=== PATIENT | female | born 1990 | race Two or more races ===

== ENCOUNTER 2024-04-04 12:59 | Emergency (ER) | payer MEDICAID, SELFPAY ==
[2024-04-04 13:13] VITALS: BP 130/80; PULSE 84; RESP 18; TEMP 36.9; O2SAT 96; BMI 30.8
--- NOTE | 2024-04-04 13:36 | XR_ITS ---
Examination: CT brain head without contrast. 2-D sagittal coronal reconstructions Date and time of exam:April 04, 2024 1345 hours INDICATIONS: Headaches brain follicle altered mental status today CTDI: vol (mGy):45.7 DLP: (mGycm):968 Technique: Multiple CT axial sections of the brain have been obtained, 5 mm slice thickness. Contrast has not been administered. 2-D sagittal, coronal reconstructions have been obtained Low dose protocols were performed. One or more of the following dose reduction techniques were used; automated exposure control, adjustment of the mA and/or KV according to patient size, use of iterative reconstruction technique. Findings: No significant ventricular enlargement. Intra-axial or extra-axial hemorrhage density is not seen. No mass effect or midline shift Basal cisterns are not remarkable. Fourth ventricle is midline. Cranial vault intact. Impression: Negative for acute hemorrhage, mass effect or midline shift Advise clinical correlation follow-up accordingly
[2024-04-04 14:06] LABS: Basophils % (Auto) 0 % (0-2.5); Eosinophils # (Auto) 0.2 Thou/mm3 (0.0-0.5); Eosinophils % (Auto) 2 % (0-10); Hematocrit 37.2 % (36.0-46.0); Hemoglobin 12.6 g/dL (12.0-16.0); Immature Granulocytes % (Auto) 0 % (0-0); Immature Granulocytes Auto 0.02 Thou/mm3 (0.00-0.00); Lymphocytes # (Auto) 3.1 Thou/mm3 (1.0-4.8); Lymphocytes % (Auto) 33 % (10-50); Mean Corpuscular HGB Conc 33.9 g/dl (31.0-37.0); Mean Corpuscular Volume 86 fL (80-100); Monocytes # (Auto) 0.9 Thou/mm3 (0.0-0.8); Monocytes % (Auto) 10 % (0-12); Neutrophils # (Auto) 5.2 Thou/mm3 (1.8-7.7); Neutrophils % (Auto) 55 % (37-80); Nucleated Red Blood Cell % 0 /100 WBC (0); Platelet Count 302 Thou/mm3 (140-440); RDW Standard Deviation 40.1 fL (36.4-46.3); Red Blood Count 4.34 Miln/mm3 (4.00-5.20); White Blood Count 9.5 Thou/mm3 (3.6-11.0)
[2024-04-04 14:28] LABS: Alanine Aminotransferase 17 U/L (10-49); Albumin, Serum 4.5 gm/dL (3.5-5.0); Albumin/Globulin Ratio 1.4 (1.2-2.2); Alkaline Phosphatase 100 U/L (46-116); Anion Gap 6 (7-16); Aspartate Amino Transferase 18 U/L (0-34); BUN/Creatinine Ratio 11 Ratio (12-20); Bilirubin,Total 0.4 mg/dL (0.3-1.2); Blood Urea Nitrogen 9 mg/dL (9-23); Calcium 9.2 mg/dL (8.3-10.6); Calcium (Corrected) 9.2 mg/dL (8.5-10.1); Carbon Dioxide 26.7 mMol/L (20.0-31.0); Chloride 105 mMol/L (98-107); Creatinine (Component) 0.8 mg/dL (0.6-1.3); Estimated Creatinine Clearance 88.4 mL/min (>60); Globulin 3.2 gm/dL (2.3-3.5); Glucose 78 mg/dL (74-106); Osmolality,Calculated 273 (275-295); Potassium 3.5 mMol/L (3.4-5.1); Sodium 138 mMol/L (136-145); Total Protein 7.7 gm/dL (5.7-8.2); eGFR > 60 See Note
[2024-04-04 14:31] LABS: HCG,Qualitative Serum Negative
--- NOTE | 2024-04-04 15:06 | EDNOTE_ITS ---
ED Dizzyness RME/HPI General Chief Complaint: Dizziness Stated Complaint: DIZZY, BRAIN FOG Time Seen by Provider: 04/04/24 13:13 Arrival date/time: 04/04/24 12:59 33-year-old female presents emergency department today with reports of brain fog as well as dizziness and patient reports she feels like she has a bump or a crevice on the left side of her skull patient reports no recent injuries patient reports no fever nausea or vomiting there are no other associated symptoms or aggravating factors no other modifying factors, patient denies taking medication before coming to ER today Limitations: no limitations Related Data Previous Rx's ?Medication ?Instructions ?Recorded ibuprofen 600 mg tablet 600 mg PO Q6H #30 tabs 04/04/24 Allergies Allergy/AdvReac Type Severity Reaction Status Date / Time No Known Allergies Allergy Unknown Verified 02/09/22 11:25 Review of Systems Review of Systems Systems Reviewed: All systems reviewed, normal except as documented Constitutional Constitutional: Reports system reviewed and no additional complaints, except as documented, Denies fever(s) and Reports headache(s) Eyes Eyes: Reports system reviewed and no additional complaints, except as documented and Denies blurry vision ENT Ears, Nose, Mouth, and Throat: Reports system reviewed and no additional complaints, except as documented, Reports headache(s), Denies nasal congestion, Denies nasal discharge and Reports vertigo Cardiovascular Cardiovascular: Reports system reviewed and no additional complaints, except as documented, Denies chest pain and Denies dyspnea Respiratory Respiratory: Reports system reviewed and no additional complaints, except as documented, Denies chest congestion, Denies cough and Denies dyspnea Gastrointestinal Gastrointestinal: Reports system reviewed and no additional complaints, except as documented and Denies abdominal pain Integumentary/Breasts Skin/Breast: Reports system reviewed and no additional complaints, except as documented and Denies rash Neurologic Neurologic: Reports system reviewed and no additional complaints, except as documented, Reports as per HPI, Reports headache(s) and Reports vertigo Past Medical History Past Medical History NEUROLOGIC: Positive Migraine (OTC); Negative Neurological Disorders or Seizures CARDIAC: Negative Cardiac Disorders, Congestive Heart Failure, Edema, Cellulitis or Varicose Veins RESPIRATORY: Negative Chronic Obstructive Pulmonary Disease (COPD), Tuberculosis or Sleep Apnea GASTROINTESTINAL: Negative Gastrointestinal Disorders, Hepatitis, Ramirez's Esophagus or Colorectal Cancer GENITOURINARY: Negative Genitourinary Disorders or Renal Disease REPRODUCTIVE: Positive Previous Pregnancies (); Negative Breast Cancer, Endometriosis, Genital Herpes, Gonorrhea, Pelvic Inflammatory Disease, Syphilis or Uterine Prolapse MUSCULOSKELETAL: Negative Musculoskeletal Disorders or Bone Cancer ENDOCRINE: Negative Endocrine Disorders, Diabetes Mellitus Type 1 or Diabetes Mellitus Type 2 HEMATOLOGIC: Positive Anemia (DURING , NO CURRENT PROBLEMS); Negative Blood Disorders, Leukemia, Hemophilia, Thalassemia, Sickle Cell Disease or Clotting Problems OTHER HISTORY: Negative Hospitalization, Autoimmune Disease, Down Syndrome, Developmental Delay, Shingles, Falls, Blood Transfusions, Blood Transfusion Reaction, Anesthesia Reactions, Organ Transplant, Chemotherapy, Radiation Therapy, Hyperbaric Therapy, MRSA, VRSA, Vancomycin-Resistant Enterococci, Human Immunodeficiency Virus (HIV), Chicken Pox, Measles, Mumps, Rubella (Korean Measles), Pertussis, Clostridium Difficile, Breast Cancer, Cervical Cancer, Colorectal Cancer, Lung Cancer or Ovarian Cancer Family History FAMILY HISTORY: Positive Family Psychiatric Problems (SISTER (DEPRESSION)) and Family Surgery (MOTHER); Negative Family Respiratory Disorders, Family Cardiac Disorders, Family Gastrointestinal Problems, Family Cancer or Family Anesthesia Reaction Surgical History SURGICAL: Negative Pacemaker or Organ Transplant Social History SMOKING STATUS: Never smoker ED Exam General Limitations: Present no limitations General appearance: Present alert and in no apparent distress Head Head exam: Present atraumatic, normocephalic and normal inspection Eye Eye exam: Present normal appearance, PERRL and EOMI; Absent conjunctival injection ENT ENT exam: Present normal exam, normal oropharynx and mucous membranes moist Neck Neck exam: Present normal inspection, full ROM and trachea midline Chest Chest inspection: Present normal inspection and symmetric chest wall rise Respiratory Respiratory exam: Present normal lung sounds bilaterally; Absent respiratory distress Cardiovascular Cardiovascular exam: Present regular rate, normal rhythm and normal heart sounds Abdominal Exam Abdominal exam: Present soft and normal bowel sounds; Absent distention, tenderness, guarding, rebound or rigidity Extremities Exam Extremities exam: Present normal inspection and full ROM Back Exam Back exam: Present normal inspection and full ROM Neurological Exam Neurological exam: Present alert, oriented X3, CN II-XII intact, normal gait and reflexes normal; Absent motor sensory deficit Psychiatric Psychiatric exam: Present normal affect and normal mood Skin Skin exam: Present warm, dry, intact and normal color; Absent rash Course Quality Measures none Orders Category Date Time Status CT head/brain wo con Stat Exams 04/04/24 13:36 Completed CBC Stat Lab 04/04/24 13:51 Completed CMP [Comprehensive Metabolic Panel] Stat Lab 04/04/24 13:51 Completed HCG,Qualitative Serum Stat Lab 04/04/24 13:51 Completed Vital Signs Vital signs: Vital Signs Temperature 98.4 F 04/04/24 13:13 Pulse Rate 84 04/04/24 13:13 Respiratory Rate 18 04/04/24 13:13 Blood Pressure 130/80 04/04/24 13:13 Pulse Oximetry (%) 96 04/04/24 13:13 Oxygen Delivery Method Room Air 04/04/24 13:13 O2 saturation 96% room air within normal limit Dizziness MDM Narrative MDM Narrative:: 33-year-old female presents emergency department today with reports of brain fog as well as dizziness and patient reports she feels like she has a bump or a crevice on the left side of her skull patient reports no recent injuries patient reports no fever nausea or vomiting there are no other associated symptoms or aggravating factors no other modifying factors, patient denies taking medication before coming to ER today On exam I do not feel any abnormalities to the skull l on palpation On exam patient well-appearing patient does not appear ill or toxic patient walks with steady gait Imaging obtained lab work obtained no acute emergent findings noted Patient discharged home in no distress to follow-up with primary care doctor in the next 24 to 48 hours and for any worsening symptoms to return to the ER immediately Patient data External records reviewed:: [facility] previous records Clinical information provided by:: patient Social determinants that could affect healthcare access:: none Patient has the following chronic illnesses:: none How is presenting disease/condition affected by chronic disease/condition?: no chronic disease Evaluation data The following diagnostics were reviewed and interpreted by me:: lab results and radiology exam(s) Lab and/or radiology exams considered but not ordered:: Labs radiology obtained Interpretation Summary: Reviewed by me Medications / Prescriptions Medications or Prescriptions considered but not ordered:: Given Medication administrations:: Given Consultations Consultation(s) initiated? (list below): No Diagnosis Dizziness Differential Diagnosis: other (Dizziness, headache) Most likely diagnosis given after review of the tests above:: Headache Admission Indicated Admission indicated?: not indicated Admission Request Was there a request for admission?: No Disposition Plan Disposition Plan: Discharge Discharge Attestation Discharge Attestation: The patient and all family members were given an opportunity to ask questions and understood the discharge instructions. Discharge instructions specifically effects, indications for sooner follow up or return to the emergency department, and the expected course of current diagnosis. Patient condition: Stable Discharge Plan Plan Patient Disposition: HOME (Self Care) Disposition Comment: Stable Prescriptions/Referrals Prescriptions/Med Rec: New ibuprofen 600 mg tablet 600 mg PO Q6H Qty: 30 0RF Problem List Clinical Impression: Headache Patient/Caregiver Discharge Instructions Education Materials: Self-Care for Headaches Additional Instructions: Please follow up with your primary care doctor in the next 24-48hrs for any worsening symptoms return here immediately Print Language: Latvian Stand Alone Forms: N[employer] Award Info., Work/School Release, Patient Portal Info Letter PA/ASSOCIATE ARTISTIC DIRECTOR Supervising Physician PA/ASSOCIATE ARTISTIC DIRECTOR Supervising Physician: Dr. Aranda
== END 2024-04-04 15:34 | disposition home or self-care (01) ==
LOC: SERX 15:33
PROVIDERS: Nurse Practitioner Primary Care; Emergency Provider Emergency Medicine
DX: R51.9 Headache, unspecified (principal); R42 Dizziness and giddiness
CPT/HCPCS: 36415; 70450; 80053; 84703; 85025; 99284

== ENCOUNTER → 2024-09-07 | Outpatient (CLI) | payer MEDICAID, SELFPAY ==
--- NOTE | 2024-09-07 16:00 | XR_ITS ---
Examination: Thyroid sonography complete TECHNIQUE: Penny scale sonographic images thyroid lobes Date and time: September 07, 2024 1559 hours Difficulty swallowing 2 years, diagnosis hypothyroidism 2 years ago. FINDINGS: Right thyroid 4.1 cm Left thyroid 4.0 cm No thyroid nodules IMPRESSION: Negative examination
== END | disposition home or self-care (01) ==
LOC: CDIM 15:52
PROVIDERS: Referring Provider Nurse Practitioner Primary Care; Visit Provider Nurse Practitioner Primary Care
DX: R13.10 Dysphagia, unspecified (principal); Z86.39 Personal history of other endocrine, nutritional and metabolic disease
CPT/HCPCS: 76536

== ENCOUNTER 2024-09-10 13:15 | Emergency (ER) | payer MEDICAID, SELFPAY ==
[2024-09-10 13:16] VITALS: BMI 31.4
[2024-09-10 13:23] VITALS: BP 118/75; PULSE 77; RESP 18; TEMP 36.9; O2SAT 98
--- NOTE | 2024-09-10 13:34 | XR_ITS ---
Examination: Complete OB ultrasound, less than 14 weeks, transabdominal Date and time of exam: September 10, 2024 1336 hours INDICATIONS: Patient fell 30 minutes ago with injury to the pelvis followed by pelvic pain Technique: Obstetrical ultrasound images less than 14 weeks performed via transabdominal imaging Findings: Uterus 7.0 cm with intrauterine gestational sac 0.6 cm corresponding to 5 weeks 2 days gestational age No pole, no cardiac activity Right ovary 2.0 cm arterial flow Left ovary 2.7 cm arterial flow Mild fluid in the cul-de-sac IMPRESSION: Empty intrauterine gestational sac corresponding to 5 weeks 2 days gestational age Recommend short-term follow-up transvaginal pelvic sonography to confirm viability
--- NOTE | 2024-09-10 13:37 | PD.EDFALL ---
ED Fall Injury RME/HPI General Chief Complaint: Fall Stated Complaint: PT FELL FROM 3 STEPS OF STAIRS; PT 1MONTH OB Time Seen by Provider: 09/10/24 13:19 Source: patient Arrival date/time: 09/10/24 13:15 34-year-old female with no known medical history presents to the emergency room with a chief complaint of a ground-level fall while climbing stairs to go into her house. Patient states she is currently 1 month and since the fall she has had some pelvic cramping. Mode of arrival: ambulatory Limitations: no limitations Related Data Previous Rx's ?Medication ?Instructions ?Recorded ibuprofen 600 mg tablet 600 mg PO Q6H #30 tabs 04/04/24 Allergies Allergy/AdvReac Type Severity Reaction Status Date / Time No Known Allergies Allergy Unknown Verified 09/10/24 13:19 Review of Systems Review of Systems Systems Reviewed: All systems reviewed, normal except as documented Constitutional Constitutional: Reports system reviewed and no additional complaints, except as documented, Denies fatigue, Denies fever(s), Denies headache(s) and Denies weakness Eyes Eyes: Reports system reviewed and no additional complaints, except as documented, Denies blurry vision and Denies change in vision ENT Ears, Nose, Mouth, and Throat: Reports system reviewed and no additional complaints, except as documented, Denies otalgia, Denies headache(s), Denies nasal congestion, Denies throat swelling and Denies vertigo Cardiovascular Cardiovascular: Reports system reviewed and no additional complaints, except as documented, Denies chest pain, Denies dyspnea and Denies dyspnea on exertion Respiratory Respiratory: Reports system reviewed and no additional complaints, except as documented, Denies chest congestion, Denies cough, Denies dyspnea, Denies dyspnea on exertion and Denies wheezing Gastrointestinal Gastrointestinal: Reports system reviewed and no additional complaints, except as documented, Denies abdominal pain, Denies cramping, Denies nausea and Denies vomiting Genitourinary Genitourinary: Reports system reviewed and no additional complaints, except as documented, Denies abnormal vaginal bleeding, Denies dysuria and Reports pelvic pain Musculoskeletal Musculoskeletal: Reports system reviewed and no additional complaints, except as documented and Denies back pain Integumentary/Breasts Skin/Breast: Reports system reviewed and no additional complaints, except as documented and Denies wounds Neurologic Neurologic: Reports system reviewed and no additional complaints, except as documented, Denies confusion, Denies headache(s), Denies lack of coordination, Denies vertigo and Denies weakness Psychiatric Psychiatric: Reports system reviewed and no additional complaints, except as documented, Denies anxiety, Denies confusion, Denies depression, Denies paranoia, Denies suicidal ideation and Denies tactile hallucinations Endocrine Endocrine: Reports system reviewed and no additional complaints, except as documented and Denies fatigue Hematologic/Lymphatic Hematologic/Lymphatic: Reports system reviewed and no additional complaints, except as documented and Denies lymphadenopathy Allergic/Immunologic Allergic/Immunologic: Reports system reviewed and no additional complaints, except as documented, Denies throat swelling, Denies urticaria and Denies wheezing ED Exam General Limitations: Present no limitations General appearance: Present alert and in no apparent distress Head Head exam: Present atraumatic Eye Eye exam: Present normal appearance, PERRL and EOMI ENT ENT exam: Present normal exam, normal oropharynx and mucous membranes moist Neck Neck exam: Present normal inspection, full ROM and trachea midline Chest Chest inspection: Present normal inspection and symmetric chest wall rise Respiratory Respiratory exam: Present normal lung sounds bilaterally Cardiovascular Cardiovascular exam: Present regular rate, normal rhythm and normal heart sounds Abdominal Exam Abdominal exam: Present soft and normal bowel sounds Abdominal tenderness: Present RLQ, LLQ, suprapubic and mild Extremities Exam Extremities exam: Present normal inspection and full ROM Back Exam Back exam: Present normal inspection and full ROM Neurological Exam Neurological exam: Present alert, oriented X3 and CN II-XII intact Psychiatric Psychiatric exam: Present normal affect and normal mood Skin Skin exam: Present warm, dry, intact and normal color Course Quality Measures none Orders Category Date Time Status US OB <= 14 weeks fetus Stat Exams 09/10/24 13:34 Completed ABO/RH Type Stat Lab 09/10/24 13:41 Completed Beta HCG,Quantitative Stat Lab 09/10/24 13:41 Completed CBC Stat Lab 09/10/24 13:41 Completed CMP [Comprehensive Metabolic Panel] Stat Lab 09/10/24 13:41 Completed UA [Urinalysis] Stat Lab 09/10/24 14:29 Completed Vital Signs Vital signs: Vital Signs Temperature 98.4 F 09/10/24 13:23 Pulse Rate 77 09/10/24 13:23 Respiratory Rate 18 09/10/24 13:23 Blood Pressure 118/75 09/10/24 13:23 Pulse Oximetry (%) 98 09/10/24 13:23 Oxygen Delivery Method Room Air 09/10/24 13:23 O2 saturation 98% within normal limits Fall MDM Narrative MDM Narrative:: 34-year-old female with no known medical history presents to the emergency room with a chief complaint of a ground-level fall while climbing stairs to go into her house. Patient states she is currently 1 month and since the fall she has had some pelvic cramping. Patient is hemodynamically stable and in no apparent distress Physical examination shows some bilateral pelvic cramping. Patient denies any vaginal bleeding or spotting. H&H is within normal limits. Patient's hCG levels are at 2985. Ultrasound OB showed an empty intrauterine gestational sac at 5 weeks and 2 days there is no pole no cardiac activity. The patient was educated to return for transvaginal pelvic sonography in the next 3 days to confirm viability. Patient was discharged and educated to follow-up with primary care provider in the next 24 to 48 hours and return to the emergency room for any evidence of worsening signs or symptoms Patient data External records reviewed:: [facility] previous records Clinical information provided by:: patient Social determinants that could affect healthcare access:: none Patient has the following chronic illnesses:: No chronic illness How is presenting disease/condition affected by chronic disease/condition?: no chronic disease Evaluation data The following diagnostics were reviewed and interpreted by me:: lab results and radiology exam(s) Lab and/or radiology exams considered but not ordered:: Labs and radiology exams considered in order Interpretation Summary: OB ultrasound-Findings: Uterus 7.0 cm with intrauterine gestational sac 0.6 cm corresponding to 5 weeks 2 days gestational age No pole, no cardiac activity Right ovary 2.0 cm arterial flow Left ovary 2.7 cm arterial flow Mild fluid in the cul-de-sac IMPRESSION: Empty intrauterine gestational sac corresponding to 5 weeks 2 days gestational age Recommend short-term follow-up transvaginal pelvic sonography to confirm viability Medications / Prescriptions Medications or Prescriptions considered but not ordered:: No medication given Medication administrations:: No medication given Consultations Consultation(s) initiated? (list below): No Diagnosis Fall Differential Diagnosis: other (Pelvic pain/threatened /spontaneous ) Most likely diagnosis given after review of the tests above:: Pelvic pain Admission Indicated Admission indicated?: not indicated Admission Request Was there a request for admission?: No Disposition Plan Disposition Plan: Discharge Discharge Attestation Discharge Attestation: The patient and all family members were given an opportunity to ask questions and understood the discharge instructions. Discharge instructions specifically effects, indications for sooner follow up or return to the emergency department, and the expected course of current diagnosis. Patient condition: Stable Discharge Plan Plan Patient Disposition: HOME (Self Care) Discharge Disposition comment: Stable Prescriptions/Referrals Prescriptions/Med Rec: No Action ibuprofen 600 mg tablet 600 mg PO Q6H Qty: 30 0RF Referrals: No Primary/Family,Physician [Primary Care Provider] - In 1 week Problem List Clinical Impression: Pelvic pain affecting Patient/Caregiver Discharge Instructions Education Materials: ED Abdominal Pain, Early Additional Instructions: Please follow-up with your AIRLINE MANAGERIAL SUPERVISOR or your primary care provider in the next 24 to 48 hours. At this time an ultrasound was completed and you are currently 5 weeks and 5 days . There is an empty intrauterine sac and there is no cardiac activity. You will need to return in 3 days for repeat ultrasound and blood work to confirm viability. Your hCG levels today are 2985. We will compare these levels in your next visit. For any evidence of worsening signs or symptoms return to the emergency room immediately Print Language: Korean Stand Alone Forms: Nely Award Info., Work/School Release, Patient Portal Info Letter TOMAS/ABDIRAHMAN Supervising Physician TOMAS/ABDIRAHMAN Supervising Physician: Dr Keith
[2024-09-10 14:23] LABS: Basophils % (Auto) 0 % (0-2.5); Eosinophils # (Auto) 0.2 Thou/mm3 (0.0-0.5); Eosinophils % (Auto) 3 % (0-10); Hematocrit 32.9 % (36.0-46.0); Hemoglobin 11.4 g/dL (12.0-16.0); Immature Granulocytes % (Auto) 0 % (0-0); Immature Granulocytes Auto 0.01 Thou/mm3 (0.00-0.00); Lymphocytes # (Auto) 2.7 Thou/mm3 (1.0-4.8); Lymphocytes % (Auto) 33 % (10-50); Mean Corpuscular HGB Conc 34.7 g/dl (31.0-37.0); Mean Corpuscular Hemoglobin 29.2 pg (25.0-35.0); Mean Corpuscular Volume 84 fL (80-100); Monocytes # (Auto) 0.7 Thou/mm3 (0.0-0.8); Monocytes % (Auto) 9 % (0-12); Neutrophils # (Auto) 4.3 Thou/mm3 (1.8-7.7); Neutrophils % (Auto) 54 % (37-80); Nucleated Red Blood Cell % 0 /100 WBC (0); Platelet Count 283 Thou/mm3 (140-440); RDW Standard Deviation 40.8 fL (36.4-46.3)
[2024-09-10 14:40] LABS: Collection Type, Urine Clean Catch
[2024-09-10 14:53] LABS: Bilirubin,Urine Negative (Negative); Blood,Urine Negative (Negative); Clarity,Urine Turbid (Clear/Hazy); Color,Urine Yellow (Lt Yel-Yel); Glucose, Urine Negative (Negative); Ketones,Urine Negative (Negative); Leukocyte Esterase,Urine Negative (Negative); Nitrite,Urine Negative (Negative); Protein,Urine Trace (Neg - Trace); RBC,Urine 5 /hpf (0-3); Specific Gravity,Urine 1.028 (1.001-1.035); Squamous Epithelial Cell,Urine 26 /hpf (0-5); Urobilinogen,Urine Negative mg/dL (0.0-1.0); WBC,Urine 1 /hpf (0-5)
[2024-09-10 14:58] LABS: Alanine Aminotransferase 10 U/L (10-49); Albumin, Serum 4.1 gm/dL (3.5-5.0); Albumin/Globulin Ratio 1.3 (1.2-2.2); Alkaline Phosphatase 93 U/L (46-116); Anion Gap 10 (7-16); Aspartate Amino Transferase 23 U/L (0-34); BUN/Creatinine Ratio 7 Ratio (12-20); Beta HCG,Quantitative 2985 mIU/mL (<5.0); Bilirubin,Total 0.3 mg/dL (0.3-1.2); Blood Urea Nitrogen 5 mg/dL (9-23); Carbon Dioxide 22.9 mMol/L (20.0-31.0); Chloride 102 mMol/L (98-107); Creatinine (Component) 0.7 mg/dL (0.6-1.3); Globulin 3.1 gm/dL (2.3-3.5); Glucose 83 mg/dL (74-106); Osmolality,Calculated 266 (275-295); Potassium 3.4 mMol/L (3.4-5.1); Sodium 135 mMol/L (136-145); Total Protein 7.2 gm/dL (5.7-8.2); eGFR > 60 See Note
== END 2024-09-10 16:06 | disposition home or self-care (01) ==
PROVIDERS: Nurse Practitioner Family; Emergency Provider Emergency Medicine
DX: O9A.211 Injury, poisoning and certain other consequences of external causes complicating pregnancy, first trimester (principal); S39.93XA Unspecified injury of pelvis, initial encounter; W00.1XXA Fall from stairs and steps due to ice and snow, initial encounter; Y93.39 Activity, other involving climbing, rappelling and jumping off; Y92.008 Other place in unspecified non-institutional (private) residence as the place of occurrence of the external cause; Z3A.01 Less than 8 weeks gestation of pregnancy
CPT/HCPCS: 36415; 76801; 80053; 81001; 84702; 85025; 86900; 86901; 99284

== ENCOUNTER 2024-09-13 14:32 | Emergency (ER) | payer MEDICAID, SELFPAY ==
[2024-09-13 14:33] VITALS: BMI 31.4
[2024-09-13 14:57] VITALS: BP 117/72; PULSE 79; RESP 18; TEMP 36.8; O2SAT 99
--- NOTE | 2024-09-13 15:16 | PD.EDRECHK ---
ED Recheck Abnl Lab Rx-RME/HPI General Chief Complaint: Recheck/Abnormal Lab/Rx Stated Complaint: RECHECK HCG LEVELS / REPEAT US Time Seen by Provider: 09/13/24 14:48 Arrival date/time: 09/13/24 14:32 RME / HPI RME / HPI narrative: 34-year-old female patient was told to come back today for repeat hCG. Patient sustained a fall 3 days ago, and ultrasound of the was done and showed intrauterine gestational sac and hCG was done. Patient was advised to return for repeat hCG. Patient is denying any complaints no abdominal pain no pelvic pain no vaginal bleeding or spotting. She is 5 weeks . Related Data Previous Rx's ?Medication ?Instructions ?Recorded ibuprofen 600 mg tablet 600 mg PO Q6H #30 tabs 04/04/24 Allergies Allergy/AdvReac Type Severity Reaction Status Date / Time No Known Allergies Allergy Unknown Verified 09/13/24 14:35 Review of Systems Review of Systems Narrative Review of Systems: Review of system reviewed and within normal limits except mentioned in HPI ED Exam Narrative Physical exam: VITAL SIGNS: Reviewed. GENERAL APPEARANCE: Alert and interactive, follows commands, no acute distress, HEAD AND FACE: Non-traumatic. ENT: PERRL, pink conjunctivitis, eyelid no trauma, Mucous membrane moist. NECK: Supple, nontender, no nuchal rigidity. CHEST: No tenderness, no crepitus, no paradoxical movement, no retractions. LUNGS: Clear, well ventilated, symmetric, no rales, no wheezing, no ronchi, no stridor, good breath sounds bilaterally. HEART: Regular rate, regular rhythm, no murmur, no gallops. ABDOMEN: Soft, positive bowel sounds, nondistended, no guarding, nontender, no rebound, no masses, RECTAL: Deferred. GENITAL: Deferred. NEUROLOGICAL: Gross motor function intact sensory function intact, Appropriate for age. MUSCULOSKELETAL: low back nontender, full range of motion. EXTREMITIES: Nontender, full range of motion. SKIN: Color pink, dry, no rash, no lacerations, no abrasions, no contusions. LYMPHATICS: Deferred. Course Quality Measures none Orders Category Date Time Status Beta HCG,Quantitative Stat Lab 09/13/24 15:37 Completed Vital Signs Vital signs: Vital Signs Temperature 98.2 F 09/13/24 14:57 Pulse Rate 79 09/13/24 14:57 Respiratory Rate 18 09/13/24 14:57 Blood Pressure 117/72 09/13/24 14:57 Pulse Oximetry (%) 99 09/13/24 14:57 Oxygen Delivery Method Room Air 09/13/24 14:57 Recheck / Abnormal Lab / Rx MDM Narrative MDM Narrative:: 34-year-old female patient was told to come back today for repeat hCG. Patient sustained a fall 3 days ago, and ultrasound of the was done and showed intrauterine gestational sac and hCG was done. Patient was advised to return for repeat hCG. Patient is denying any complaints no abdominal pain no pelvic pain no vaginal bleeding or spotting. She is 5 weeks . Patient hCG above 9000, which is normal increase in 3 days. From more than 1999. Patient data External records reviewed:: None Clinical information provided by:: patient Social determinants that could affect healthcare access:: none Patient has the following chronic illnesses:: none How is presenting disease/condition affected by chronic disease/condition?: no chronic disease Evaluation data The following diagnostics were reviewed and interpreted by me:: lab results Lab and/or radiology exams considered but not ordered:: none Interpretation Summary: 9337 Medications / Prescriptions Medications or Prescriptions considered but not ordered:: none Medication administrations:: none Consultations Consultation(s) initiated? (list below): No Diagnosis Recheck Differential Diagnosis: other (Encounter with recheck of hCG) Most likely diagnosis given after review of the tests above:: Normal Admission Indicated Admission indicated?: not indicated Admission Request Was there a request for admission?: No Disposition Plan Disposition Plan: Discharge Discharge Attestation Discharge Attestation: The patient was given an opportunity to ask questions and understood the discharge instructions. Discharge instructions specifically effects, indications for sooner follow up or return to the emergency department, and the expected course of current diagnosis. Patient condition: Stable Discharge Plan Plan Patient Disposition: HOME (Self Care) Discharge Disposition comment: Stable Prescriptions/Referrals Prescriptions/Med Rec: No Action ibuprofen 600 mg tablet 600 mg PO Q6H Qty: 30 0RF Referrals: No Primary/Family,Physician [Primary Care Provider] - In 1 week Problem List Clinical Impression: Normal Patient/Caregiver Discharge Instructions Discharge Activity: activity as tolerated Education Materials: First Trimester Additional Instructions: Thank you for the opportunity for serving you today. You are stable for discharged . You are advised to: Follow-up with your SAFETY EQUIPMENT TESTING SPECIALIST in 1 to 2 days Return to ED for worsening of symptoms Print Language: Kinyarwanda Stand Alone Forms: Nely Award Info., Patient Portal Info Letter TOMAS/PROFESSOR OF SPECIAL EDUCATION Supervising Physician TOMAS/ABDIRAHMAN Supervising Physician: MD Rashid
[2024-09-13 16:37] LABS: Beta HCG,Quantitative 9337 mIU/mL (<5.0)
== END 2024-09-13 17:32 | disposition home or self-care (01) ==
PROVIDERS: Nurse Practitioner Family; Emergency Provider Family Medicine
DX: Z34.91 Encounter for supervision of normal pregnancy, unspecified, first trimester (principal)
CPT/HCPCS: 36415; 84702; 99283

== ENCOUNTER 2024-09-21 15:00 | Emergency (ER) | payer MEDICAID, SELFPAY ==
[2024-09-21 15:01] VITALS: BMI 32.5
[2024-09-21 15:06] VITALS: BP 113/71; PULSE 70; RESP 16; TEMP 37.2; O2SAT 97
--- NOTE | 2024-09-21 15:10 | XR_ITS ---
Examination: Complete OB ultrasound, less than 14 weeks, transabdominal Date and time of exam: September 21, 2024 1517 hours INDICATIONS: Onset vaginal discharge today Technique: Obstetrical ultrasound images less than 14 weeks performed via transabdominal imaging Findings: A normal shaped single intrauterine gestation is present in the uterus. pole 0.9 cm corresponds to 17 weeks 0 days gestational age Adjacent subchorionic hemorrhage 22 x 7 mm Ultrasonographic survey of visible structures unremarkable. Amniotic fluid volume appears appropriate for this estimated gestational age. Right ovary 2.8 cm arterial flow Left ovary 2.2 cm arterial flow IMPRESSION: Viable intrauterine gestation 7 weeks 0 days Recommend short-term follow-up pelvic sonography given the subchorionic hemorrhage on the current study
[2024-09-21 16:05] LABS: Basophils % (Auto) 0 % (0-2.5); Eosinophils # (Auto) 0.2 Thou/mm3 (0.0-0.5); Eosinophils % (Auto) 2 % (0-10); Hematocrit 32.5 % (36.0-46.0); Hemoglobin 11.4 g/dL (12.0-16.0); Immature Granulocytes % (Auto) 0 % (0-0); Immature Granulocytes Auto 0.01 Thou/mm3 (0.00-0.00); Lymphocytes # (Auto) 2.4 Thou/mm3 (1.0-4.8); Lymphocytes % (Auto) 30 % (10-50); Mean Corpuscular HGB Conc 35.1 g/dl (31.0-37.0); Mean Corpuscular Hemoglobin 30.1 pg (25.0-35.0); Mean Corpuscular Volume 86 fL (80-100); Monocytes # (Auto) 0.7 Thou/mm3 (0.0-0.8); Monocytes % (Auto) 8 % (0-12); Neutrophils # (Auto) 4.8 Thou/mm3 (1.8-7.7); Neutrophils % (Auto) 60 % (37-80); Nucleated Red Blood Cell % 0 /100 WBC (0); Platelet Count 251 Thou/mm3 (140-440); RDW Standard Deviation 42.2 fL (36.4-46.3); Red Blood Count 3.79 Miln/mm3 (4.00-5.20); White Blood Count 8.1 Thou/mm3 (3.6-11.0)
--- NOTE | 2024-09-21 17:26 | EDNOTE_ITS ---
<Statement entered by Kirsty Torre MD - 10/02/24 00:59> As co-signing physician, I was present and available for consult prn. I concur with the plan and care as documented by the midlevel provider. ED OB Contraction Preg RMI/HPI General Chief complaint: Vaginal Bleeding Stated complaint: 7WKS PREG, C/O VAG DISCHARGE/SPOTTING Time Seen by Provider: 09/21/24 15:05 Arrival date/time: 09/21/24 15:00 34-year-old female with no significant medical problems presents to the emergency department today stating she is having vaginal spotting pink vaginal discharge. Patient reports no fever nausea vomiting no headache dizziness weakness Limitations: no limitations Related Data Previous Rx's ?Medication ?Instructions ?Recorded ibuprofen 600 mg tablet 600 mg PO Q6H #30 tabs 04/04 Allergies Allergy/AdvReac Type Severity Reaction Status Date / Time No Known Allergies Allergy Unknown Verified 09/21/24 15:03 Review of Systems Review of Systems Systems Reviewed: All systems reviewed, normal except as documented Constitutional Constitutional: Reports system reviewed and no additional complaints, except as documented, Denies fever(s) and Denies headache(s) Eyes Eyes: Reports system reviewed and no additional complaints, except as documented and Denies blurry vision ENT Ears, Nose, Mouth, and Throat: Reports system reviewed and no additional complaints, except as documented, Denies headache(s), Denies nasal congestion and Denies nasal discharge Cardiovascular Cardiovascular: Reports system reviewed and no additional complaints, except as documented, Denies chest pain and Denies dyspnea Respiratory Respiratory: Reports system reviewed and no additional complaints, except as documented, Denies chest congestion, Denies cough and Denies dyspnea Gastrointestinal Gastrointestinal: Reports system reviewed and no additional complaints, except as documented and Denies abdominal pain Genitourinary Genitourinary: Reports system reviewed and no additional complaints, except as documented and Reports abnormal vaginal bleeding Integumentary/Breasts Skin/Breast: Reports system reviewed and no additional complaints, except as documented and Denies rash Neurologic Neurologic: Reports system reviewed and no additional complaints, except as documented, Reports as per HPI and Denies headache(s) Past Medical History Past Medical History NEUROLOGIC: Positive Migraine (OTC); Negative Neurological Disorders or Seizures CARDIAC: Negative Cardiac Disorders, Congestive Heart Failure, Edema, Cellulitis or Varicose Veins RESPIRATORY: Negative Chronic Obstructive Pulmonary Disease (COPD), Tuberculosis or Sleep Apnea GASTROINTESTINAL: Negative Gastrointestinal Disorders, Hepatitis, Ramirez's Esophagus or Colorectal Cancer GENITOURINARY: Negative Genitourinary Disorders or Renal Disease REPRODUCTIVE: Positive Previous Pregnancies (); Negative Breast Cancer, Endometriosis, Genital Herpes, Gonorrhea, Pelvic Inflammatory Disease, Syphilis or Uterine Prolapse MUSCULOSKELETAL: Negative Musculoskeletal Disorders or Bone Cancer ENDOCRINE: Negative Endocrine Disorders, Diabetes Mellitus Type 1 or Diabetes Mellitus Type 2 HEMATOLOGIC: Positive Anemia (DURING , NO CURRENT PROBLEMS); Negative Blood Disorders, Leukemia, Hemophilia, Thalassemia, Sickle Cell Disease or Clotting Problems OTHER HISTORY: Negative Hospitalization, Autoimmune Disease, Down Syndrome, Developmental Delay, Shingles, Falls, Blood Transfusions, Blood Transfusion Reaction, Anesthesia Reactions, Organ Transplant, Chemotherapy, Radiation Therapy, Hyperbaric Therapy, MRSA, VRSA, Vancomycin-Resistant Enterococci, Human Immunodeficiency Virus (HIV), Chicken Pox, Measles, Mumps, Rubella (Slovenian Measles), Pertussis, Clostridium Difficile, Breast Cancer, Cervical Cancer, Colorectal Cancer, Lung Cancer or Ovarian Cancer Family History FAMILY HISTORY: Positive Family Psychiatric Problems (SISTER (DEPRESSION)) and Family Surgery (MOTHER); Negative Family Respiratory Disorders, Family Cardiac Disorders, Family Gastrointestinal Problems, Family Cancer or Family Anesthesia Reaction Surgical History SURGICAL: Negative Pacemaker or Organ Transplant Social History SMOKING STATUS: Never smoker ED Exam General Limitations: Present no limitations General appearance: Present alert and in no apparent distress Head Head exam: Present atraumatic Eye Eye exam: Present normal appearance, PERRL and EOMI ENT ENT exam: Present normal exam, normal oropharynx and mucous membranes moist Neck Neck exam: Present normal inspection, full ROM and trachea midline Chest Chest inspection: Present normal inspection and symmetric chest wall rise Respiratory Respiratory exam: Present normal lung sounds bilaterally Cardiovascular Cardiovascular exam: Present regular rate, normal rhythm and normal heart sounds Abdominal Exam Abdominal exam: Present soft and normal bowel sounds; Absent distention, tenderness, guarding, rebound or rigidity Extremities Exam Extremities exam: Present normal inspection and full ROM Back Exam Back exam: Present normal inspection and full ROM Neurological Exam Neurological exam: Present alert, oriented X3 and CN II-XII intact Psychiatric Psychiatric exam: Present normal affect and normal mood Skin Skin exam: Present warm, dry, intact and normal color Course Quality Measures none Orders Category Date Time Status US OB <= 14 weeks fetus Stat Exams 09/21/24 15:10 Completed Beta HCG,Quantitative Stat Lab 09/21/24 15:46 Completed CBC Stat Lab 09/21/24 15:46 Completed Vital Signs Vital signs: Vital Signs Temperature 99.0 F 09/21/24 15:06 Pulse Rate 70 09/21/24 15:06 Respiratory Rate 16 09/21/24 15:06 Blood Pressure 113/71 09/21/24 15:06 Pulse Oximetry (%) 97 09/21/24 15:06 Oxygen Delivery Method Room Air 09/21/24 15:06 O2 saturation 97% on room air within normal limits Vaginal Bleeding MDM Narrative MDM Narrative: 34-year-old female with no significant medical problems presents to the emergency department today stating she is having vaginal spotting pink vaginal discharge. Patient reports no fever nausea vomiting no headache dizziness weakness On exam patient well-appearing patient does not appear toxic in no acute distress Lab work and imaging obtained no acute emergent findings noted Patient appears to have viable at this time Patient discharged home in no distress to follow-up with primary care doctor in the next 24 to 48 hours and for any worsening symptoms to return to the ER immediately Patient data External records reviewed:: [facility] previous records Clinical information provided by:: patient Social determinants that could affect healthcare access:: none Patient has the following chronic illnesses:: None How is presenting disease/condition affected by chronic disease/condition?: no chronic disease Evaluation data The following diagnostics were reviewed and interpreted by me:: lab results and radiology exam(s) Lab and/or radiology exams considered but not ordered:: Labs radiology obtained Interpretation Summary: Reviewed by me Medications / Prescriptions Medications or Prescriptions considered but not ordered:: Given Medication administrations:: Given Consultations Consultation(s) initiated? (list below): No Diagnosis Vaginal Bleeding Differential Diagnosis: missed and threatened Most likely diagnosis given after review of the tests above:: Threatened Admission Indicated Admission indicated?: not indicated Admission Request Was there a request for admission?: No Disposition Plan Disposition Plan: Discharge Discharge Attestation Discharge Attestation: The patient and all family members were given an opportunity to ask questions and understood the discharge instructions. Discharge instructions specifically effects, indications for sooner follow up or return to the emergency department, and the expected course of current diagnosis. Patient condition: Stable Discharge Plan Plan Patient Disposition: HOME (Self Care) Discharge Disposition comment: Stable Prescriptions/Referrals Prescriptions/Med Rec: No Action ibuprofen 600 mg tablet 600 mg PO Q6H Qty: 30 0RF Referrals: Claudia Stahl CNM [Primary Care Provider] - 09/24/24 Problem List Clinical Impression: Subchorionic bleed Patient/Caregiver Discharge Instructions Education Materials: Bleeding During Early Additional Instructions: Please follow-up with MAJOR ACCOUNT MANAGER as discussed for worsening symptoms return immediately Print Language: Yi Stand Alone Forms: Nely Award Info., Patient Portal Info Letter PA/SHELL MOLD BONDING MACHINE OPERATOR Supervising Physician PA/SHELL MOLD BONDING MACHINE OPERATOR Supervising Physician: Dr. TORRE
[2024-09-21 18:59] LABS: Beta HCG,Quantitative 48607 mIU/mL (<5.0)
== END 2024-09-21 18:26 | disposition home or self-care (01) ==
PROVIDERS: Nurse Practitioner Primary Care; Emergency Provider Emergency Medicine; PCP Advanced Practice Midwife
DX: O20.8 Other hemorrhage in early pregnancy (principal); Z3A.01 Less than 8 weeks gestation of pregnancy
CPT/HCPCS: 36415; 76801; 84702; 85025; 99284

== ENCOUNTER 2024-09-24 14:30 | Outpatient (AMB) | payer MEDICAID, SELFPAY ==
--- NOTE | 2024-09-24 14:36 | AMB.OBINITIA ---
Vital Signs 09/24/24 14:48 Height 1.52 m Height Method Stated Weight 73.992 kg Weight Measurement Method Standing Scale BMI 31.8 BP 110/66 Blood Pressure Source Automatic Cuff Blood Pressure Location Right Upper Arm Position Sitting Respiration 14 Pulse 63 Pulse Source Monitor Temp 98.0 F Temp Source Oral Pulse Oximetry (%) 98 Oxygen Delivery Method Room Air Allergies/Home Meds Allergies & Medications Allergies No Known Allergies Allergy (Unknown, Verified 09/24/24 14:50) Medication Reconciliation aspirin 81 mg tablet,delayed release (Adult Aspirin Regimen) 81 mg PO QDAY #30 tabs 09/24/24 [Rx] doxylamine 10 mg-pyridoxine (vit B6) 10 mg tablet,delayed release (Diclegis) 1 tab PO BID 30 days #60 tabs 09/24/24 [Rx] Intake Visit Data Collection New Patient or Established: Established Patient (seen at [facility] within 3 years) Reason for Visit:: INITIAL VISIT Seen by Clinical Staff ONLY (RN/MA): No Manager Of Case Required: No Do You Feel Safe at Home: Yes Authorities Contacted: N/A PCP or OBGYN visit in last 3 months: Yes Hx Now: Yes Are you currently on any form of Control: No Last menstrual period: 08/05/24 Pain Present Currently: No Pain Scale Used: Frias-Arellano/Numerical Pain scale:: 0 Smoking Status Smoking Status: Never smoker Questionnaires Covid-19 Vaccine Questionnaire Has patient been vacinated for Covid-19 Have you been vacinated for Covid-19: Yes PHQ-9 PHQ-2 Over the last 2 weeks, how often have you been bothered by any of the following problems? 1. Little interest or pleasure in doing things: not at all 2. Feeling down, depressed, or hopeless: not at all Total score: 0 PHQ-9 3. Trouble falling or staying asleep, or sleeping too much: Not at all 4. Feeling tired or having little energy: Not at all 5. Poor appetite or overeating: Not at all 6. Feeling bad about yourself - or that you are a failure or have let yourself or your family down: Not at all 7. Trouble concentrating on things, such as reading the newspaper or watching television: Not at all 8. Moving or speaking so slowly that other people could have noticed? - Or the opposite - being so fidgety or restless that you have been moving around a lot more than usual: not at all 9. Thoughts that you would be better off or of hurting yourself in some way: Not at all Total score: 0 Source: Developed by Drs. Ky Zavala, Tania Moctezuma, Maldonado Hernandez and colleagues, with an educational mark from [employer]. 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 Feel Safe at Home: Yes History of Present Illness HPI Narrative Xiomy Yang is a 34-year-old 5 para 4 for her first OB appointment. Patient states her last period was August 03, 2024. This gives a due date May 12, 2025. She is have been having some bleeding off and on with the and she was seen in the ED. Her last visit was September 10. She had an ultrasound that showed a viable fetus at 5 weeks 2 days. And this confirmed dates as well May 12, 2025. Patient has a history of an abnormal Pap and a colpo. She denies social habits. She denies she has a history of thyroid disease but reports her last labs were normal. She has 4 vaginal births all normal and uncomplicated. Previous history of anemia. And also history of depression. She is also had a hernia repair in 2016 and also she had a cone for abnormal Pap smear on the . 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 Medical History Past Medical History: No Hx Neurological Disorders, No Hx Breast Cancer, No Hx Cardiac Disorders, No Hx Blood Disorders, Yes Hx Anemia (DURING , NO CURRENT PROBLEMS), No Hx Gastrointestinal Disorders, No Hx Renal Disease, No Hx Diabetes Mellitus Type 1 and No Hx Diabetes Mellitus Type 2 OB Initial Visit OB Flowsheet OB Flowsheet Initial Weight: Not Recorded Date <del>?</del> EGA Weight BP Alb Glu CTX Pres Fundal ht FHR Mov Dilation Station Effacement Hx Notes Visit Note 09/24/24 <del>?</del> 7w 2d 73.992 kg 110/66 absent unknown 7 absent No bleeding, history of spotting x 4 week. ER visit x2, subchorionic bleed, sono 09/10: IUP 5w2. increasing HCG. C/o, Nausea. diclegesis bid, comfort measure for nausea, OB panel today. start low dose ASA. sab precaution, schedule NT referral and NIPT NV diclegesis bid, comfort measure for nausea, OB panel today. start low dose ASA. sab precaution, schedule NT referral and NIPT ,carrier screen and TSH nv Menstrual History Menstrual reliability: definite Flow: normal Menstrual regularity: regular Monthly: Yes Age at menarche: 12 On control pills at conception: No Associated symptoms (LMP): Reports nausea, fatigue and breast tenderness OB History : 5 Para: 4 # of Living Children: 4 Delivery History 1st : Child's name: ROMINA date: 02/02/08 sex: male Gestational age at delivery (weeks): 40 Delivery type: vaginal Delivery complications: NONE History of depression before or after : No 2nd : Child's name: KARIME date: 04/22/09 sex: male Gestational age at delivery (weeks): 40 Delivery type: vaginal Delivery complications: NONE History of depression before or after : No 3rd : Child's name: JENNY date: 12/30/12 sex: female Gestational age at delivery (weeks): 40 Delivery type: vaginal Delivery complications: NONE History of depression before or after : No 4th : Child's name: KAM date: 08/04/16 sex: male Gestational age at delivery (weeks): 40 Delivery type: vaginal Delivery complications: NONE History of depression before or after : No Infection History & Risk Evaluation History of STDs: HPV HIV risk evaluation: low risk Hepatitis B risk evaluation: low risk Patient or partner has history of Genital Herpes: No Genetic Screening & History Genetic Screening/Teratology Counseling - Includes patient, baby's father, or anyone in either family with: 1. Patient's age 35 years or older as of estimated date of delivery: No 2. Thalassemia (Vietnamese, Belarusian, Mediterranean, or Background); MCV less than 80: No 3. Neural Tube Defect (Meningomyelocele, Spina Bifida, or Anencephaly): No 4. Congenital Heart Defect: No 5. Down Syndrome: No 6. Hiren-Sachs (Ashkenazi Advent, Cajun, Romansh [place]): No 7. Maria E Disease (Ashkenazi Advent): No 8. Familial Dysautonomia (Ashkenazi Advent): No 9. Sickle Cell Disease or Trait (): No 10. Hemophilia or other blood disorders: No 11. Muscular Dystrophy: No 12. Cystic Fibrosis: No 13. Zach's Chorea: No 14. Mental Retardation/Autism: No 15. Other inherited genetic or chromosomal disorder: No 16. Maternal Metabolic Disorder (EG,TYPE 1 Diabetes, PKU): No 17. Patient or baby's father had a child with defects not listed above: No 18. Recurrent loss or a stillbirth: No 19. Medications (including supplements, vitamins, herbs or otc drugs)/illicit/recreational drugs/alcohol since last menstrual period: No 20. Any other: No Infection History 1. Live with someone with TB or exposed to TB: No 2. Rash or viral illness since last menstrual period: No 3. Hepatitis B,C: No 4. History of STD: HPV Other (see comments) Source: [employer] Review of Systems Review of Systems Systems Reviewed: All systems reviewed, normal except as documented Constitutional Constitutional: Reports fatigue Gastrointestinal Gastrointestinal: Reports nausea Endocrine Endocrine: Reports fatigue Exam General Limitations: no limitations General Appearance: alert, in no apparent distress, comfortable, cooperative, healthy appearing, well developed and well groomed Head Head exam: atraumatic, normocephalic and normal inspection Resp Respiratory exam: Present normal lung sounds bilaterally Card Cardiovascular exam: Present regular rate, normal rhythm and normal heart sounds Extremities Extremities exam: Present normal inspection and full ROM Psych Psychiatric exam: Present normal affect and normal mood Office Procedures OB Clinic LOC & Office Proc's Nursing/Assessment Patient Status: Established Patient OB Clinic Nursing Assessment: Medication Reconciliation, Update PMH in EMR and Vital Signs OB Clinic Coordination of Care: Complex Care and Chronic Disease 1-5, Consent,records obtained, informed consent, Education Simp Pt/Fam, Lab and Imaging orders, Results/Orders obtained and Staff clarify orders Special Needs: Heart tones Established Patient Charge Established Patient Point Assignment: 135 Established Patient Point Charge: EP Level 4 (120-155) Assessment & Plan Diagnosis / Problem List (1) Supervision of normal intrauterine in multigravida in first trimester: Status: Acute Plan OB panel today. Discussed SAB precautions. I reviewed dates with patient. Increase fluids. Comfort measures for nausea. Diclegis twice daily. I gave her 60 tabs. NIPT TSH and schedule NT scan next visit. Additional Plan Follow Up: 4 Weeks (0bc)
[2024-09-24 14:48] VITALS: BP 110/66; PULSE 63; RESP 14; TEMP 36.7; O2SAT 98; BMI 31.8
== END 2024-09-24 15:16 | disposition home or self-care (01) ==
LOC: HODSOBC 14:30
PROVIDERS: Supervising Provider Advanced Practice Midwife; Visit Provider Advanced Practice Midwife
DX: Z34.81 Encounter for supervision of other normal pregnancy, first trimester (principal); Z3A.01 Less than 8 weeks gestation of pregnancy
CPT/HCPCS: 99214; G0463

== ENCOUNTER 2024-10-30 13:39 | Outpatient (AMB) | payer MEDICAID, SELFPAY ==
[2024-10-30 13:58] VITALS: BP 110/71; PULSE 80; RESP 16; TEMP 36.1; O2SAT 98; BMI 30.4
--- NOTE | 2024-10-30 13:58 | AMB.OBVISIT ---
Vital Signs 10/30/24 13:58 Height 1.52 m Height Method Stated Weight 70.42 kg Weight Measurement Method Standing Scale BMI 30.4 BP 110/71 Blood Pressure Source Automatic Cuff Blood Pressure Location Left Upper Arm Position Sitting Respiration 16 Pulse 80 Pulse Source Monitor Temp 97.0 F Temp Source Oral Pulse Oximetry (%) 98 Oxygen Delivery Method Room Air Allergies/Home Meds Allergies & Medications Allergies No Known Allergies Allergy (Unknown, Verified 10/30/24 14:01) Medication Reconciliation aspirin 81 mg tablet,delayed release (Adult Aspirin Regimen) 81 mg PO QDAY #30 tabs 09/24/24 [Rx Confirmed 10/30/24] doxylamine 10 mg-pyridoxine (vit B6) 10 mg tablet,delayed release (Diclegis) 1 tab PO BID 30 days #60 tabs 09/24/24 [Rx Confirmed 10/30/24] Intake Visit Data Collection New Patient or Established: Established Patient (seen at [facility] within 3 years) Reason for Visit:: CARE Seen by Clinical Staff ONLY (RN/MA): No Dining Services Director Required: No Do You Feel Safe at Home: Yes Authorities Contacted: N/A PCP or OBGYN visit in last 3 months: Yes Hx Now: Yes Are you currently on any form of Control: No Pain Present Currently: No Pain Scale Used: Frias-Arellano/Numerical Pain scale:: 0 Smoking Status Smoking Status: Never smoker Questionnaires Covid-19 Vaccine Questionnaire Has patient been vacinated for Covid-19 Have you been vacinated for Covid-19: Yes PHQ-9 PHQ-2 Over the last 2 weeks, how often have you been bothered by any of the following problems? 1. Little interest or pleasure in doing things: not at all 2. Feeling down, depressed, or hopeless: not at all Total score: 0 PHQ-9 3. Trouble falling or staying asleep, or sleeping too much: Not at all 4. Feeling tired or having little energy: Not at all 5. Poor appetite or overeating: Not at all 6. Feeling bad about yourself - or that you are a failure or have let yourself or your family down: Not at all 7. Trouble concentrating on things, such as reading the newspaper or watching television: Not at all 8. Moving or speaking so slowly that other people could have noticed? - Or the opposite - being so fidgety or restless that you have been moving around a lot more than usual: not at all 9. Thoughts that you would be better off or of hurting yourself in some way: Not at all Total score: 0 Source: Developed by Drs. Ky Zavala, Tania Moctezuma, Maldonado Hernandez and colleagues, with an educational mark from [employer]. 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 ER visit x2, subchorionic bleed, sono 09/10: IUP 5w2. increasing HCG. C/o, Nausea. diclegesis bid, comfort measure for nausea, OB panel today. start low dose ASA. sab precaution, schedule NT referral and NIPT NV diclegesis bid, comfort measure for nausea, OB panel today. start low dose ASA. sab precaution, schedule NT referral and NIPT ,carrier screen and TSH nv 10/30/24 <del>?</del> 12w 3d 70.42 kg 110/71 absent unknown 12 145 absent no OB complaints. denies bleeding or leaking NIPT/carrier screen. [facility] 11/01. discuss sab precaution. continue PNV. increase fluid MARTY Calculator Estimated Delivery Date Method Current WG Current Estimate 05/11/25 Ultrasound #1 12w 3d Other Estimates 05/11/25 LMP (Certain) 12w 3d Notes Visit Date: 10/30/24 Last Updated by: Claudia Stahl CNM 10/30/24 OB labs: O+,abs-, rpr;;nr, rub imm, hbsag-,hiv-, GC/CT-, UA- Visit Date: 09/24/24 Last Updated by: Claudia Stahl CNM 34 yo . LMP 08/03/24. EDC 05/12/25. history of abnormal Pap Office Procedures OB Clinic LOC & Office Proc's Nursing/Assessment Patient Status: Established Patient OB Clinic Nursing Assessment: Medication Reconciliation, Update PMH in EMR and Vital Signs OB Clinic Coordination of Care: Complex Care and Chronic Disease 1-5, Consent,records obtained, informed consent, Education Simp Pt/Fam, Lab and Imaging orders, Results/Orders obtained and Staff clarify orders Special Needs: Heart tones Miscellaneous Interventions: Blood/Urine Collection Established Patient Charge Established Patient Point Assignment: 165 Established Patient Point Charge: EP Level 5 (160-above) Assessment & Plan Diagnosis / Problem List (1) Supervision of normal intrauterine in multigravida in first trimester: Status: Acute Plan sab precaution reviewed, continue PNV, NIPT and carrier screen, [facility] 11/01. rtc 4 week Additional Plan Follow Up: 4 Weeks (obc)
== END 2024-10-30 14:09 | disposition home or self-care (01) ==
LOC: HODSOBC 13:39
PROVIDERS: PCP Advanced Practice Midwife; Referring Provider Advanced Practice Midwife; Supervising Provider Advanced Practice Midwife; Visit Provider Advanced Practice Midwife
DX: Z34.81 Encounter for supervision of other normal pregnancy, first trimester (principal); Z3A.12 12 weeks gestation of pregnancy
CPT/HCPCS: 99215; G0463

== ENCOUNTER 2024-11-27 13:45 | Outpatient (AMB) | payer MEDICAID, SELFPAY ==
[2024-11-27 13:56] VITALS: BP 106/67; PULSE 81; RESP 16; TEMP 36.7; O2SAT 98; BMI 30.4
--- NOTE | 2024-11-27 13:56 | OBCLNT_ITS ---
Vital Signs 11/27/24 13:56 Height 1.52 m Height Method Stated Weight 70.364 kg Weight Measurement Method Standing Scale BMI 30.4 BP 106/67 Blood Pressure Source Automatic Cuff Blood Pressure Location Left Upper Arm Position Sitting Respiration 16 Pulse 81 Pulse Source Monitor Temp 98.0 F Temp Source Oral Pulse Oximetry (%) 98 Oxygen Delivery Method Room Air Allergies/Home Meds Allergies & Medications Allergies No Known Allergies Allergy (Unknown, Verified 11/27/24 13:57) Medication Reconciliation aspirin 81 mg tablet,delayed release (Adult Aspirin Regimen) 81 mg PO QDAY #30 tabs 09/24/24 [Rx Confirmed 11/27/24] doxylamine 10 mg-pyridoxine (vit B6) 10 mg tablet,delayed release (Diclegis) 1 tab PO BID 30 days #60 tabs 09/24/24 [Rx Confirmed 11/27/24] vitamin-ferrous fumarate 28 mg iron-folic acid 800 mcg tablet ( Vitamins with Minerals) 1 tab PO QDAY #60 tabs 11/07/24 [Rx Confirmed 11/27/24] Intake Visit Data Collection New Patient or Established: Established Patient (seen at [facility] within 3 years) Reason for Visit:: CARE Seen by Clinical Staff ONLY (RN/MA): No Insurance Coordinator Required: No Do You Feel Safe at Home: Yes Authorities Contacted: N/A PCP or OBGYN visit in last 3 months: Yes Hx Now: Yes Are you currently on any form of Control: No Pain Present Currently: No Pain Scale Used: Frias-Arellano/Numerical Pain scale:: 0 Smoking Status Smoking Status: Never smoker Questionnaires Covid-19 Vaccine Questionnaire Has patient been vacinated for Covid-19 Have you been vacinated for Covid-19: Yes PHQ-9 PHQ-2 Over the last 2 weeks, how often have you been bothered by any of the following problems? 1. Little interest or pleasure in doing things: not at all 2. Feeling down, depressed, or hopeless: not at all Total score: 0 PHQ-9 3. Trouble falling or staying asleep, or sleeping too much: Not at all 4. Feeling tired or having little energy: Not at all 5. Poor appetite or overeating: Not at all 6. Feeling bad about yourself - or that you are a failure or have let yourself or your family down: Not at all 7. Trouble concentrating on things, such as reading the newspaper or watching television: Not at all 8. Moving or speaking so slowly that other people could have noticed? - Or the opposite - being so fidgety or restless that you have been moving around a lot more than usual: not at all 9. Thoughts that you would be better off or of hurting yourself in some way: Not at all Total score: 0 Source: Developed by Drs. Ky Zavala, Tania Moctezuma, Maldonado Hernandez and colleagues, with an educational mark from [employer]. 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 Past Medical History: No Hx Neurological Disorders, No Hx Breast Cancer, No Hx Cardiac Disorders, No Hx Blood Disorders, Yes Hx Anemia (DURING , NO CURRENT PROBLEMS), No Hx Gastrointestinal Disorders, No Hx Renal Disease, No Hx Diabetes Mellitus Type 1 and No Hx Diabetes Mellitus Type 2 Care OB Visit Log OB Flowsheet Initial Weight: Not Recorded Date -?-?-?-?-?-?-?-?-?-?-?-?- EGA Weight BP Alb Glu CTX Pres Fundal ht FHR Mov Dilation Station Effacement Hx Notes Visit Note 09/24/24 -?-?-?-?-?-?-?-?-?-?-?-?- 7w 2d 73.992 kg 110/66 absent unknown 7 ab sent No bleeding, history of spotting x 4 week. ER visit x2, subchorionic bleed, sono 09/10: IUP 5w2. increasing HCG. C/o, Nausea. dic legesis bid, comfort measure for nausea, OB panel today. start low dose ASA. sab precaution, schedule NT referral and NIPT NV diclegesis bid, comfort bry ure for nausea, OB panel today. start low dose ASA. sab precaution, schedule NT referral and NIPT ,carrier screen and TSH nv 10/30/24 -?-?-?-?-?-?-?-?-?-?-?-?- 12w 3d 70.42 kg 110/71 absent unknown 12 145 absent no OB complaints. denies bleeding or leaking NIPT/ carrier screen. [facility] 11/01. discuss sab precaution. continue PNV. increase fluid 11/27/24 -?-?-?-?-?-?-?-?-?-?-?-?- 16w 3d 70.364 kg 106/67 absent unknown 16 145 active No OB complaints. Follow-up to ER visit. Patient had had's some cramping and burning so she was seen in the ER. Treated for UTI with Macrobid and is finishing up her antibiotics. Nitrites negative. Leukocyte +1. And there is trace protein. Denies leaking fluid. Denies bleeding. Maternal- medicine ultrasound was done. Patient has a follow-up in 6 to 8 weeks Follow-up MFM in 4 to 8 weeks. aFP today. Discussed SAB precautions. Increase fluids. Return in 4 weeks OB check MARTY Calculator Estimated Delivery Date Method Current WG Current Estimate 05/11/25 LMP (Certain) 16w 3d Other Estimates 05/11/25 Ultrasound #1 16w 3d Notes Visit Date: 11/27/24 Last Updated by: Claudia Stahl CNM 11/27: NIPT/carrier screen-. 11/01 [facility] sono: IUP 12w4/normal anatomy Visit Date: 10/30/24 Last Updated by: Claudia Stahl CNM 10/30/24 OB labs: O+,abs-, rpr;;nr, rub imm, hbsag-,hiv-, GC/CT-, UA- Visit Date: 09/24/24 Last Updated by: Claudia Stahl CNM 34 yo . LMP 08/03/24. EDC 05/12/25. history of abnormal Pap Office Procedures OB Clinic LOC & Office Proc's Nursing/Assessment Patient Status: Established Patient OB Clinic Nursing Assessment: Medication Reconciliation, Update PMH in EMR and Vital Signs OB Clinic Coordination of Care: Complex Care and Chronic Disease 1-5, Consent,records obtained, informed consent, Education Simp Pt/Fam, 1 Ins Authorization, Lab and Imaging orders, Results/Orders obtained and Staff clarify orders Special Needs: Heart tones Miscellaneous Interventions: Blood/Urine Collection Established Patient Charge Established Patient Point Assignment: 180 Established Patient Point Charge: EP Level 5 (160-above) Assessment & Plan Diagnosis / Problem List (1) Encounter for supervision of high risk in second trimester, antepartum: Status: Acute Plan aFP today. Follow-up MFM appointment for growth in 4 to 8 weeks. Discussed SAB precautions. Discussed diet and increase fluids. Return in 4 weeks OB check Additional Plan Follow Up: 4 Weeks (obc)
== END 2024-11-27 14:18 | disposition home or self-care (01) ==
LOC: HODSOBC 13:45
PROVIDERS: Supervising Provider Advanced Practice Midwife; Visit Provider Advanced Practice Midwife
DX: O09.92 Supervision of high risk pregnancy, unspecified, second trimester (principal); Z3A.16 16 weeks gestation of pregnancy
CPT/HCPCS: 99215; G0463

== ENCOUNTER 2024-12-26 13:06 | Outpatient (AMB) | payer MEDICAID, SELFPAY ==
[2024-12-26 13:19] VITALS: BP 104/60; PULSE 78; RESP 16; TEMP 36.5; O2SAT 98
--- NOTE | 2024-12-26 13:19 | AMB.OBVISIT ---
Vital Signs 12/26/24 13:19 Height 1.52 m Height Method Stated Weight 69.456 kg Weight Measurement Method Standing Scale BMI 30.0 BP 104/60 Blood Pressure Source Automatic Cuff Blood Pressure Location Left Upper Arm Position Sitting Respiration 16 Pulse 78 Pulse Source Monitor Temp 97.7 F Temp Source Oral Pulse Oximetry (%) 98 Oxygen Delivery Method Room Air Allergies/Home Meds Allergies & Medications Allergies No Known Allergies Allergy (Unknown, Verified 12/26/24 13:21) Medication Reconciliation aspirin 81 mg tablet,delayed release (Adult Aspirin Regimen) 81 mg PO QDAY #30 tabs 09/24/24 [Rx Confirmed 12/26/24] doxylamine 10 mg-pyridoxine (vit B6) 10 mg tablet,delayed release (Diclegis) 1 tab PO BID 30 days #60 tabs 09/24/24 [Rx Confirmed 12/26/24] vitamin-ferrous fumarate 28 mg iron-folic acid 800 mcg tablet ( Vitamins with Minerals) 1 tab PO QDAY #60 tabs 11/07/24 [Rx Confirmed 12/26/24] Intake Visit Data Collection New Patient or Established: Established Patient (seen at [facility] within 3 years) Reason for Visit:: CARE Seen by Clinical Staff ONLY (RN/MA): No 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 1. Little interest or pleasure in doing things: not at all 2. Feeling down, depressed, or hopeless: not at all Total score: 0 PHQ-9 3. Trouble falling or staying asleep, or sleeping too much: Not at all 4. Feeling tired or having little energy: Not at all 5. Poor appetite or overeating: Not at all 6. Feeling bad about yourself - or that you are a failure or have let yourself or your family down: Not at all 7. Trouble concentrating on things, such as reading the newspaper or watching television: Not at all 8. Moving or speaking so slowly that other people could have noticed? - Or the opposite - being so fidgety or restless that you have been moving around a lot more than usual: not at all 9. Thoughts that you would be better off or of hurting yourself in some way: Not at all Total score: 0 Source: Developed by Drs. Ky Zavala, Tania Moctezuma, Maldonado Hernandez and colleagues, with an educational mark from [employer]. 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 ER visit x2, subchorionic bleed, sono 09/10: IUP 5w2. increasing HCG. C/o, Nausea. diclegesis bid, comfort measure for nausea, OB panel today. start low dose ASA. sab precaution, schedule NT referral and NIPT NV diclegesis bid, comfort measure for nausea, OB panel today. start low dose ASA. sab precaution, schedule NT referral and NIPT ,carrier screen and TSH nv 10/30/24 <del>?</del> 12w 3d 70.42 kg 110/71 absent unknown 12 145 absent no OB complaints. denies bleeding or leaking NIPT/carrier screen. [facility] 11/01. discuss sab precaution. continue PNV. increase fluid 11/27/24 <del>?</del> 16w 3d 70.364 kg 106/67 absent unknown 16 145 active No OB complaints. Follow-up to ER visit. Patient had had's some cramping and burning so she was seen in the ER. Treated for UTI with Macrobid and is finishing up her antibiotics. Nitrites negative. Leukocyte +1. And there is trace protein. Denies leaking fluid. Denies bleeding. Maternal- medicine ultrasound was done. Patient has a follow-up in 6 to 8 weeks Follow-up MFM in 4 to 8 weeks. aFP today. Discussed SAB precautions. Increase fluids. Return in 4 weeks OB check 12/26/24 <del>?</del> 20w 4d 69.456 kg 104/60 absent unknown 20 145 active No OB complaints. Reports movement. Denies leaking, bleeding, contractions. Pap 6 weeks . Due TSH with third trimester labs at 24 weeks. Reviewed labs with patient patient has a follow-up ultrasound this week. Discussed labor precautions MARTY Calculator Estimated Delivery Date Method Current WG Current Estimate 05/11/25 LMP (Certain) 20w 4d Other Estimates 05/11/25 Ultrasound #1 20w 4d Notes Visit Date: 12/26/24 Last Updated by: Claudia Stahl CNM previous cone BX/high grade. AFP-. OB panel: O+,abs-, rpr;;nbr, rub imm, hbsag-,hiv-, HC-, GC/CT-, UA-NIPT/carrier- 34 yo . LMP: 08/04/24. EDC: 05/11/25. 1st sono: 11/01/24: [id number]. EDC: 05/12/25. repap 6 week pp Visit Date: 11/27/24 Last Updated by: Claudia Stahl CNM 11/27: NIPT/carrier screen-. 11/01 [facility] sono: IUP 12w4/normal anatomy Visit Date: 10/30/24 Last Updated by: Claudia Stahl CNM 10/30/24 OB labs: O+,abs-, rpr;;nr, rub imm, hbsag-,hiv-, GC/CT-, UA- Visit Date: 09/24/24 Last Updated by: Claudia Stahl CNM 34 yo . LMP 08/03/24. EDC 05/12/25. history of abnormal Pap Office Procedures OB Clinic LOC & Office Proc's Nursing/Assessment Patient Status: Established Patient OB Clinic Nursing Assessment: Medication Reconciliation, Update PMH in EMR and Vital Signs OB Clinic Coordination of Care: Complex Care and Chronic Disease 1-5, Consent,records obtained, informed consent, Education Simp Pt/Fam, 1 Ins Authorization, Lab and Imaging orders, Results/Orders obtained and Staff clarify orders Special Needs: Heart tones Established Patient Charge Established Patient Point Assignment: 150 Established Patient Point Charge: EP Level 4 (120-155) Assessment & Plan Diagnosis / Problem List (1) Encounter for supervision of high risk in second trimester, antepartum: Status: Acute Plan Reviewed AFP. Pap 6 weeks . Do TSH with third trimester labs next visit. Discussed labor precautions. Increase fluids. Return in 4 weeks for recheck Additional Plan Follow Up: 4 Weeks (obc)
== END 2024-12-26 13:43 | disposition home or self-care (01) ==
LOC: HODSOBC 13:06
PROVIDERS: Supervising Provider Advanced Practice Midwife; Visit Provider Advanced Practice Midwife
DX: O09.92 Supervision of high risk pregnancy, unspecified, second trimester (principal); Z3A.20 20 weeks gestation of pregnancy; Z79.82 Long term (current) use of aspirin
CPT/HCPCS: 99214; G0463

== ENCOUNTER 2025-01-23 09:16 | Outpatient (AMB) | payer MEDICAID, SELFPAY ==
--- NOTE | 2025-01-23 09:55 | OBCLNT_ITS ---
Vital Signs 01/23/25 09:59 Height 1.52 m Height Method Stated Weight 69.57 kg Weight Measurement Method Standing Scale BMI 30.1 BP 107/67 Blood Pressure Source Automatic Cuff Blood Pressure Location Right Upper Arm Position Sitting Respiration 19 Pulse 98 Pulse Source Monitor Temp 98.7 F Temp Source Temporal Artery Scan Pulse Oximetry (%) 98 Oxygen Delivery Method Room Air Allergies/Home Meds Allergies & Medications Allergies No Known Allergies Allergy (Unknown, Verified 01/23/25 09:55) Medication Reconciliation aspirin 81 mg tablet,delayed release (Adult Aspirin Regimen) 81 mg PO QDAY #30 tabs 09/24/24 [Rx Confirmed 01/23/25] doxylamine 10 mg-pyridoxine (vit B6) 10 mg tablet,delayed release (Diclegis) 1 tab PO BID 30 days #60 tabs 09/24/24 [Rx Confirmed 01/23/25] vitamin-ferrous fumarate 28 mg iron-folic acid 800 mcg tablet ( Vitamins with Minerals) 1 tab PO QDAY #60 tabs 11/07/24 [Rx Confirmed 01/23/25] Intake Visit Data Collection New Patient or Established: Established Patient (seen at [facility] within 3 years) Reason for Visit:: OBC Seen by Clinical Staff ONLY (RN/MA): No Top Edge 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 1. Little interest or pleasure in doing things: not at all 2. Feeling down, depressed, or hopeless: not at all Total score: 0 PHQ-9 3. Trouble falling or staying asleep, or sleeping too much: Not at all 4. Feeling tired or having little energy: Not at all 5. Poor appetite or overeating: Not at all 6. Feeling bad about yourself - or that you are a failure or have let yourself or your family down: Not at all 7. Trouble concentrating on things, such as reading the newspaper or watching television: Not at all 8. Moving or speaking so slowly that other people could have noticed? - Or the opposite - being so fidgety or restless that you have been moving around a lot more than usual: not at all 9. Thoughts that you would be better off or of hurting yourself in some way: Not at all Total score: 0 If you checked off any problems, how difficult have these problems made it for you to do your work, take care of things at home, or get along with other people?: not difficult at all Source: Developed by Drs. Ky Zavala, Tania Moctezuma, Maldonado Hernandez and colleagues, with an educational mark from [employer]. 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- EGA Weight BP Alb Glu CTX Pres Fundal ht FHR Mov Dilation Station Effacement Hx Notes Visit Note 09/24/24 -?-?-?-?-?-?-?-?-?-?-?-?- 7w 2d 73.992 kg 110/66 absent unknown 7 ab sent No bleeding, history of spotting x 4 week. ER visit x2, subchorionic bleed, sono 09/10: IUP 5w2. increasing HCG. C/o, Nausea. dic legesis bid, comfort measure for nausea, OB panel today. start low dose ASA. sab precaution, schedule NT referral and NIPT NV diclegesis bid, comfort bry ure for nausea, OB panel today. start low dose ASA. sab precaution, schedule NT referral and NIPT ,carrier screen and TSH nv 10/30/24 -?-?-?-?-?-?-?-?-?-?-?-?- 12w 3d 70.42 kg 110/71 absent unknown 12 145 absent no OB complaints. denies bleeding or leaking NIPT/ carrier screen. MFM 11/01. discuss sab precaution. continue PNV. increase fluid 11/27/24 -?-?-?-?-?-?-?-?-?-?-?-?- 16w 3d 70.364 kg 106/67 absent unknown 16 145 active No OB complaints. Follow-up to ER visit. Patient had had's some cramping and burning so she was s een in the ER. Treated for UTI with Macrobid and is finishing up her antibiotics. Nitrites negative. Leukocyte +1. And there is trace protein. Denies leaking fluid. Denies bleeding. Maternal- medicine ultrasound was done. Patient has a follow-up in 6 to 8 weeks Follow-up MFM in 4 to 8 weeks. aFP today. Discussed SAB precautions. Increase fluids. Return in 4 weeks OB check 12/26/24 -?-?-?-?-?-?-?-?-?-?-?-?- 20w 4d 69.456 kg 104/60 absent unknown 20 145 active No OB complaints. Reports movement. Denies leaking, bleeding, contractions. Pap 6 weeks . Due TSH with third trimester labs at 24 weeks. Reviewed labs with patient patient has a follow-up ultrasound this week. Discussed labor precautions 01/23/25 -?-?-?-?-?-?-?-?-?-?-?-?- 24w 4d 69.57 kg 107/67 absent unknown 24 145 active Fetus active. No OB complaints. Patient has a echo scheduled. Previous history of a child with a heart murmur. Denies labor complaints denies contractions. Denies bleeding. Denies leaking 1 hour GTT. Reviewed ultrasound with patient. Discussed labor precautions. Continue prenatals. Return in 4 weeks OB check MARTY Calculator Estimated Delivery Date Method Current WG Current Estimate 05/11/25 LMP (Certain) 24w 4d Other Estimates 05/11/25 Ultrasound #1 24w 4d 05/12/25 Ultrasound #2 24w 3d Notes Visit Date: 12/26/24 Last Updated by: Claudia Stahl CNM previous cone BX/high grade. AFP-. OB panel: O+,abs-, rpr;;nbr, rub imm, hbsag-,hiv-, HC-, GC/CT-, UA-NIPT/carrier- 34 yo . LMP: 08/04/24. EDC: 05/11/25. 1st sono: 11/01/24: [id number]. EDC: 05/12/25. repap 6 week pp Visit Date: 11/27/24 Last Updated by: Claudia Stahl CNM 11/27: NIPT/carrier screen-. 11/01 [facility] sono: IUP 12w4/normal anatomy Visit Date: 10/30/24 Last Updated by: Claudia Stahl CNM 10/30/24 OB labs: O+,abs-, rpr;;nr, rub imm, hbsag-,hiv-, GC/CT-, UA- Visit Date: 09/24/24 Last Updated by: Claudia Stahl CNM 34 yo . LMP 08/03/24. EDC 05/12/25. history of abnormal Pap Office Procedures OBC Clinic LOC & Office Proc's Nursing/Assessment Patient Status: Established Patient OB Clinic Nursing Assessment: Medication Reconciliation, Update PMH in EMR and Vital Signs OB Clinic Coordination of Care: Education Complex Pt/Fam, Consent,records obtained, informed consent, Lab and Imaging orders, Results/Orders obtained and Staff clarify orders Special Needs: Heart tones Established Patient Charge Established Patient Point Assignment: 115 Established Patient Point Charge: EP Level 3 (80-115) Assessment & Plan Diagnosis / Problem List (1) Encounter for supervision of high risk in second trimester, antepartum: Status: Acute Plan Third trimester labs. Review OB ultrasound. Discussed labor precautions. Increase fluids. Return in 4 weeks OB check. Keep appointment for echo Additional Plan Follow Up: 4 Weeks (obc)
[2025-01-23 09:59] VITALS: BP 107/67; PULSE 98; RESP 19; TEMP 37.1; O2SAT 98; BMI 30.1
== END 2025-01-23 10:31 | disposition home or self-care (01) ==
LOC: HODSOBC 09:16
PROVIDERS: Supervising Provider Advanced Practice Midwife; Visit Provider Advanced Practice Midwife
DX: O09.92 Supervision of high risk pregnancy, unspecified, second trimester (principal); Z3A.24 24 weeks gestation of pregnancy
CPT/HCPCS: 99213; G0463

== ENCOUNTER 2025-02-15 15:16 | Outpatient (AMB) | payer MEDICAID, SELFPAY ==
[2025-02-15 15:33] VITALS: BP 104/64; PULSE 81; RESP 16; TEMP 36.8; O2SAT 98; BMI 30.2
--- NOTE | 2025-02-15 15:33 | OBCLNT_ITS ---
Vital Signs 02/15/25 15:33 Height 1.52 m Height Method Stated Weight 69.853 kg Weight Measurement Method Standing Scale BMI 30.2 BP 104/64 Blood Pressure Source Automatic Cuff Blood Pressure Location Left Upper Arm Position Sitting Respiration 16 Pulse 81 Pulse Source Monitor Temp 98.2 F Temp Source Oral Pulse Oximetry (%) 98 Oxygen Delivery Method Room Air Allergies/Home Meds Allergies & Medications Allergies No Known Allergies Allergy (Unknown, Verified 02/15/25 15:38) Medication Reconciliation aspirin 81 mg tablet,delayed release (Adult Aspirin Regimen) 81 mg PO QDAY #30 tabs 09/24/24 [Rx Confirmed 02/15/25] doxylamine 10 mg-pyridoxine (vit B6) 10 mg tablet,delayed release (Diclegis) 1 tab PO BID 30 days #60 tabs 09/24/24 [Rx Confirmed 02/15/25] vitamin-ferrous fumarate 28 mg iron-folic acid 800 mcg tablet ( Vitamins with Minerals) 1 tab PO QDAY #60 tabs 11/07/24 [Rx Confirmed 02/15/25] clotrimazole 1 % vaginal cream (Gyne-Lotrimin 7) 1 appful vaginal QHS 7 days #45 grams 02/15/25 [Rx] ferrous sulfate 325 mg (65 mg iron) tablet 325 mg PO BID #60 tabs 02/15/25 [Rx] metronidazole 500 mg tablet 500 mg PO BID 7 days #14 tabs 02/15/25 [Rx] Intake Visit Data Collection New Patient or Established: Established Patient (seen at [facility] within 3 years) Reason for Visit:: CARE Seen by Clinical Staff ONLY (RN/MA): No 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: No Do You Feel Safe at Home: Yes Authorities Contacted: N/A PCP or OBGYN visit in last 3 months: Yes Hx Now: Yes Are you currently on any form of Control: No Pain Present Currently: No Pain Scale Used: Frias-Arellano/Numerical Pain scale:: 0 Smoking Status Smoking Status: Never smoker Immunizations Flu Vaccine in the Last 12 Months: No Flu Vaccine Exclusion Criteria: Refused by Patient Questionnaires Covid-19 Vaccine Questionnaire Has patient been vacinated for Covid-19 Have you been vacinated for Covid-19: No PHQ-9 PHQ-2 Over the last 2 weeks, how often have you been bothered by any of the following problems? 1. Little interest or pleasure in doing things: not at all 2. Feeling down, depressed, or hopeless: not at all Total score: 0 PHQ-9 3. Trouble falling or staying asleep, or sleeping too much: Not at all 4. Feeling tired or having little energy: Not at all 5. Poor appetite or overeating: Not at all 6. Feeling bad about yourself - or that you are a failure or have let yourself or your family down: Not at all 7. Trouble concentrating on things, such as reading the newspaper or watching television: Not at all 8. Moving or speaking so slowly that other people could have noticed? - Or the opposite - being so fidgety or restless that you have been moving around a lot more than usual: not at all 9. Thoughts that you would be better off or of hurting yourself in some way: Not at all Total score: 0 Source: Developed by Drs. Ky Zavala, Tania Moctezuma, Maldonado Hernandez and colleagues, with an educational mark from [employer]. 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 Past Medical History: No Hx Neurological Disorders, No Hx Breast Cancer, No Hx Cardiac Disorders, No Hx Blood Disorders, Yes Hx Anemia (DURING , NO CURRENT PROBLEMS), No Hx Gastrointestinal Disorders, No Hx Renal Disease, No Hx Diabetes Mellitus Type 1 and No Hx Diabetes Mellitus Type 2 Care OB Visit Log OB Flowsheet Initial Weight: Not Recorded Date -?-?-?-?-?-?-?-?-?-?-?-?- EGA Weight BP Alb Glu CTX Pres Fundal ht FHR Mov Dilation Station Effacement Hx Notes Visit Note 09/24/24 -?-?-?-?-?-?-?-?-?-?-?-?- 7w 2d 73.992 kg 110/66 absent unknown 7 ab sent No bleeding, history of spotting x 4 week. ER visit x2, subchorionic bleed, sono 09/10: IUP 5w2. increasing HCG. C/o, Nausea. dic legesis bid, comfort measure for nausea, OB panel today. start low dose ASA. sab precaution, schedule NT referral and NIPT NV diclegesis bid, comfort bry ure for nausea, OB panel today. start low dose ASA. sab precaution, schedule NT referral and NIPT ,carrier screen and TSH nv 10/30/24 -?-?-?-?-?-?-?-?-?-?-?-?- 12w 3d 70.42 kg 110/71 absent unknown 12 145 absent no OB complaints. denies bleeding or leaking NIPT/ carrier screen. MFM 11/01. discuss sab precaution. continue PNV. increase fluid 11/27/24 -?-?-?-?-?-?-?-?-?-?-?-?- 16w 3d 70.364 kg 106/67 absent unknown 16 145 active No OB complaints. Follow-up to ER visit. Patient had had's some cramping and burning so she was seen in the ER. Treated for UTI with Macrobid and is finishing up her antibiotics. Nitrites negative. Leukocyte +1. And there is trace protein. Denies leaking fluid. Denies bleeding. Maternal- medicine ultrasound was done. Patient has a follow-up in 6 to 8 weeks Follow-up MFM in 4 to 8 weeks. aFP today. Discussed SAB precautions. Increase fluids. Return in 4 weeks OB check 12/26/24 -?-?-?-?-?-?-?-?-?-?-?-?- 20w 4d 69.456 kg 104/60 absent unknown 20 145 active No OB complaints. Reports movement. Denies leaking, bleeding, contractions. Pap 6 weeks . Due TSH with third trimester labs at 24 weeks. Reviewed labs with patient patient has a follow-up ultrasound this week. Discussed labor precautions 01/23/25 -?-?-?-?-?-?-?-?-?-?-?-?- 24w 4d 69.57 kg 107/67 absent unknown 24 145 active Fetus active. No OB complaints. Patient has a echo scheduled. Previous history of a child with a heart murmur. Denies labor complaints denies contractions. Denies bleeding. Denies leaking 1 hour GTT. Reviewed ultrasound with patient. Discussed labor precautions. Continue prenatals. Return in 4 weeks OB check 02/15/25 -?-?-?-?-?-?-?-?-?-?-?-?- 27w 6d 69.853 kg 104/64 absent unknown 27 145 active Patient is here for increased complaints of vaginal itching and a greenish discharge. Reports good movement. Denies leaking or bleeding. Denies contractions. Did a spec exam perineum was clean no lesions. Vagina red. Did not have curdy greenish- white discharge positive whiff N uSwab today. I discussed elevated 1 hour GTT and ordered 3-hour. Comfort measures for vaginitis. 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 Flagyl 500 p.o. twice daily x 7. Discussed labor precautions. And return in 3 weeks for OB check. Iron twice a day ordered MARTY Calculator Estimated Delivery Date Method Current WG Current Estimate 05/11/25 LMP (Certain) 27w 6d Other Estimates 05/11/25 Ultrasound #1 27w 6d 05/12/25 Ultrasound #2 27w 5d Notes Visit Date: 02/15/25 Last Updated by: Claudia Stahl CNM 01/25/25: 33/10,A1: 4.7, RPR::NR, 1 hr: 161 Visit Date: 12/26/24 Last Updated by: Claudia Stahl CNM previous cone BX/high grade. AFP-. OB panel: O+,abs-, rpr;;nbr, rub imm, hbsag-,hiv-, HC-, GC/CT-, UA-NIPT/carrier- 34 yo . LMP: 08/04/24. EDC: 05/11/25. 1st sono: 11/01/24: [id number]. EDC: 05/12/25. repap 6 week pp Visit Date: 11/27/24 Last Updated by: Claudia Stahl CNM 11/27: NIPT/carrier screen-. 11/01 MFM sono: IUP 12w4/normal anatomy Visit Date: 10/30/24 Last Updated by: Claudia Stahl CNM 10/30/24 OB labs: O+,abs-, rpr;;nr, rub imm, hbsag-,hiv-, GC/CT-, UA- Visit Date: 09/24/24 Last Updated by: Claudia Stahl, YOU 34 yo . LMP 08/03/24. EDC 05/12/25. history of abnormal Pap Office Procedures OBC Clinic LOC & Office Proc's Nursing/Assessment Patient Status: Established Patient OB Clinic Nursing Assessment: Medication Reconciliation, Update PMH in EMR and Vital Signs OB Clinic Coordination of Care: Complex Care and Chronic Disease 1-5, Consent,records obtained, informed consent, Education Simp Pt/Fam, 1 Ins Authorization, Lab and Imaging orders, Results/Orders obtained and Staff clarify orders Special Needs: Heart tones Established Patient Charge Established Patient Point Assignment: 150 Established Patient Point Charge: EP Level 4 (120-155) Assessment & Plan Diagnosis / Problem List (1) Encounter for supervision of high risk in second trimester, antepartum: Status: Acute (2) Vaginitis: Status: Acute Qualifiers: Chronicity: acute Qualified Code(s): N76.0 - Acute vaginitis Plan Comfort measures for vaginitis. NuSwab today. Gyne-Lotrimin x 7 with a refill. And Flagyl 500 p.o. twice daily x 7. Scheduled a 3-hour GTT. Discussed GDM diet and increase fluids. Discussed labor precautions. Return in 3 weeks OB check Additional Plan Follow Up: 3 Weeks (obc)
== END 2025-02-15 16:07 | disposition home or self-care (01) ==
LOC: HODSOBC 15:16
PROVIDERS: Supervising Provider Advanced Practice Midwife; Visit Provider Advanced Practice Midwife
DX: O09.892 Supervision of other high risk pregnancies, second trimester (principal); O23.592 Infection of other part of genital tract in pregnancy, second trimester; N76.0 Acute vaginitis; Z3A.27 27 weeks gestation of pregnancy
CPT/HCPCS: 99214; G0463

== ENCOUNTER 2025-03-07 11:29 | Outpatient (AMB) | payer MEDICAID, SELFPAY ==
--- NOTE | 2025-03-07 11:32 | OBCLNT_ITS ---
Vital Signs 03/07/25 11:37 Height 1.52 m Height Method Stated Weight 70.307 kg Weight Measurement Method Standing Scale BMI 30.4 BP 105/69 Blood Pressure Source Automatic Cuff Blood Pressure Location Right Upper Arm Position Sitting Respiration 18 Pulse 81 Pulse Source Monitor Temp 98.2 F Temp Source Temporal Artery Scan Pulse Oximetry (%) 98 Oxygen Delivery Method Room Air Allergies/Home Meds Allergies & Medications Allergies No Known Allergies Allergy (Unknown, Verified 03/07/25 11:39) Medication Reconciliation aspirin 81 mg tablet,delayed release (Adult Aspirin Regimen) 81 mg PO QDAY #30 tabs 09/24/24 [Rx Confirmed 03/07/25] doxylamine 10 mg-pyridoxine (vit B6) 10 mg tablet,delayed release (Diclegis) 1 tab PO BID 30 days #60 tabs 09/24/24 [Rx Confirmed 03/07/25] vitamin-ferrous fumarate 28 mg iron-folic acid 800 mcg tablet ( Vitamins with Minerals) 1 tab PO QDAY #60 tabs 11/07/24 [Rx Confirmed 03/07/25] clotrimazole 1 % vaginal cream (Gyne-Lotrimin 7) 1 appful vaginal QHS 7 days #45 grams 02/15/25 [Rx Confirmed 03/07/25] ferrous sulfate 325 mg (65 mg iron) tablet 325 mg PO BID #60 tabs 02/15/25 [Rx Confirmed 03/07/25] clotrimazole 2 % vaginal cream (Gyne-Lotrimin) 1 appful vaginal QHS 3 days #21 grams 03/07/25 [Rx] Intake Visit Data Collection New Patient or Established: Established Patient (seen at [facility] within 3 years) Reason for Visit:: OBC Seen by Clinical Staff ONLY (RN/MA): No Wax Specialist Required: No Do You Feel Safe at Home: Yes Authorities Contacted: N/A PCP or OBGYN visit in last 3 months: Yes Date of Last PCP or OBGYN visit: 02/15/25 Hx Now: Yes Are you currently on any form of Control: No Pain Present Currently: No Pain Scale Used: Frias-Arellano/Numerical Pain scale:: 0 Smoking Status Smoking Status: Never smoker Immunizations Flu Vaccine in the Last 12 Months: No Flu Vaccine Exclusion Criteria: No Exclusion Criteria Questionnaires Covid-19 Vaccine Questionnaire Has patient been vacinated for Covid-19 Have you been vacinated for Covid-19: No PHQ-9 PHQ-2 Over the last 2 weeks, how often have you been bothered by any of the following problems? 1. Little interest or pleasure in doing things: not at all 2. Feeling down, depressed, or hopeless: not at all Total score: 0 PHQ-9 3. Trouble falling or staying asleep, or sleeping too much: Not at all 4. Feeling tired or having little energy: Not at all 5. Poor appetite or overeating: Not at all 6. Feeling bad about yourself - or that you are a failure or have let yourself or your family down: Not at all 7. Trouble concentrating on things, such as reading the newspaper or watching television: Not at all 8. Moving or speaking so slowly that other people could have noticed? - Or the opposite - being so fidgety or restless that you have been moving around a lot more than usual: not at all 9. Thoughts that you would be better off or of hurting yourself in some way: Not at all Total score: 0 If you checked off any problems, how difficult have these problems made it for you to do your work, take care of things at home, or get along with other people?: not difficult at all Source: Developed by Drs. Ky Zavala, Tania Moctezuma, Maldonado Hernandez and colleagues, with an educational mark from [employer]. 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 Past Medical History: No Hx Neurological Disorders, No Hx Breast Cancer, No Hx Cardiac Disorders, No Hx Blood Disorders, Yes Hx Anemia (DURING , NO CURRENT PROBLEMS), No Hx Gastrointestinal Disorders, No Hx Renal Disease, No Hx Diabetes Mellitus Type 1 and No Hx Diabetes Mellitus Type 2 Care OB Visit Log OB Flowsheet Initial Weight: Not Recorded Date -?-?-?-?-?-?-?-?-?-?-?-?- EGA Weight BP Alb Glu CTX Pres Fundal ht FHR Mov Dilation Station Effacement Hx Notes Visit Note 09/24/24 -?-?-?-?-?-?-?-?-?-?-?-?- 7w 2d 73.992 kg 110/66 absent unknown 7 ab sent No bleeding, history of spotting x 4 week. ER visit x2, subchorionic bleed, sono 09/10: IUP 5w2. increasing HCG. C/o, Nausea. dic legesis bid, comfort measure for nausea, OB panel today. start low dose ASA. sab precaution, schedule NT referral and NIPT NV diclegesis bid, comfort bry ure for nausea, OB panel today. start low dose ASA. sab precaution, schedule NT referral and NIPT ,carrier screen and TSH nv 10/30/24 -?-?-?-?-?-?-?-?-?-?-?-?- 12w 3d 70.42 kg 110/71 absent unknown 12 145 absent no OB complaints. denies bleeding or leaking NIPT/ carrier screen. MFM 11/01. discuss sab precaution. continue PNV. increase fluid 11/27/24 -?-?-?-?-?-?-?-?-?-?-?-?- 16w 3d 70.364 kg 106/67 absent unknown 16 145 active No OB complaints. Follow-up to ER visit. Patient had had's some cramping and burning so she was seen in the ER. Treated for UTI with Macrobid and is finishing up her antibiotics. Nitrites negative. Leukocyte +1. And there is trace protein. Denies leaking fluid. Denies bleeding. Maternal- medicine ultrasound was done. Patient has a follow-up in 6 to 8 weeks Follow-up MFM in 4 to 8 weeks. aFP today. Discussed SAB precautions. Increase fluids. Return in 4 weeks OB check 12/26/24 -?-?-?-?-?-?-?-?-?-?-?-?- 20w 4d 69.456 kg 104/60 absent unknown 20 145 active No OB complaints. Reports movement. Denies leaking, bleeding, contractions. Pap 6 weeks . Due TSH with third trimester labs at 24 weeks. Reviewed labs with patient patient has a follow-up ultrasound this week. Discussed labor precautions 01/23/25 -?-?-?-?-?-?-?-?-?-?-?-?- 24w 4d 69.57 kg 107/67 absent unknown 24 145 active Fetus active. No OB complaints. Patient has a echo scheduled. Previous history of a child with a heart murmur. Denies labor complaints denies contractions. Denies bleeding. Denies leaking 1 hour GTT. Reviewed ultrasound with patient. Discussed labor precautions. Continue prenatals. Return in 4 weeks OB check 02/15/25 -?-?-?-?-?-?-?-?-?-?-?-?- 27w 6d 69.853 kg 104/64 absent unknown 27 145 active Patient is here for increased complaints of vaginal itching and a greenish discharge. Reports good movement. Denies leaking or bleeding. Denies contractions. Did a spec exam perineum was clean no lesions. Vagina red. Did not have curdy greenish-w daniel discharge positive whiff Nu Swab today. I discussed elevated 1 hour GTT and ordered 3-hour. Comfort measures for vaginitis. COMMUNICATIONS DESIGNER Lotrimin x 7 I gave her a refill. Flagyl 500 p.o. twice daily x 7. Discussed labor precautions. And return in 3 weeks for OB check. Iron twice a day ordered 03/07/25 -?-?-?-?-?-?-?-?-?-?-?-?- 30w 5d 70.307 kg 105/69 absent unknown 29 145 active Still complains of itching. NuSwab was positive for yeast. Reports movement. Denies leaking, bleeding or contractions. 3-hour GTT was normal Continue GDM diet as discussed and walk 40 minutes a day. Discussed labor precautions. Schedule ultrasound for growth. And I refilled the COMMUNICATIONS DESIGNER Lotrimin 2% x 3 days. Return in 2 weeks for recheck MARTY Calculator Estimated Delivery Date Method Current WG Current Estimate 05/11/25 LMP (Certain) 30w 5d Other Estimates 05/11/25 Ultrasound #1 30w 5d 05/12/25 Ultrasound #2 30w 4d 05/11/25 Manual 30w 5d final marty: 05/11 Notes Visit Date: 03/07/25 Last Updated by: Claudia Stahl CNM 3 hr gtt wnl. Nuswab yeast+ Visit Date: 02/15/25 Last Updated by: Claudia Stahl CNM 01/25/25: 33/10,A1: 4.7, RPR::NR, 1 hr: 161 Visit Date: 12/26/24 Last Updated by: Claudia Stahl CNM previous cone BX/high grade. AFP-. OB panel: O+,abs-, rpr;;nbr, rub imm, hbsag-,hiv-, HC-, GC/CT-, UA-NIPT/carrier- 34 yo . LMP: 08/04/24. EDC: 05/11/25. 1st sono: 11/01/24: [id number]. EDC: 05/12/25. repap 6 week pp Visit Date: 11/27/24 Last Updated by: Claudia Stahl CNM 11/27: NIPT/carrier screen-. 11/01 MFM sono: IUP 12w4/normal anatomy Visit Date: 10/30/24 Last Updated by: Claudia Stahl CNM 10/30/24 OB labs: O+,abs-, rpr;;nr, rub imm, hbsag-,hiv-, GC/CT-, UA- Visit Date: 09/24/24 Last Updated by: Claudia Stahl CNM 34 yo . LMP 08/03/24. EDC 05/12/25. history of abnormal Pap Office Procedures OBC Clinic LOC & Office Proc's Nursing/Assessment Patient Status: Established Patient OB Clinic Nursing Assessment: Medication Reconciliation, Update PMH in EMR and Vital Signs OB Clinic Coordination of Care: Complex Care and Chronic Disease 1-5, Education Complex Pt/Fam, Consent,records obtained, informed consent, Lab and Imaging orders, Results/Orders obtained and Staff clarify orders Special Needs: Heart tones Established Patient Charge Established Patient Point Assignment: 140 Established Patient Point Charge: EP Level 4 (120-155) Assessment & Plan Diagnosis / Problem List (1) Vaginitis: Status: Acute Qualifiers: Chronicity: acute Qualified Code(s): N76.0 - Acute vaginitis (2) Encounter for supervision of high risk in third trimester, antepartum: Status: Acute Plan Discussed labor precautions. COMMUNICATIONS DESIGNER Lotrimin x 3 days with 2%. Schedule growth ultrasound. Increase fluids and rest. Return in 2 weeks for recheck. TDAP tina Additional Plan Follow Up: 2 Weeks (obc)
[2025-03-07 11:37] VITALS: BP 105/69; PULSE 81; RESP 18; TEMP 36.8; O2SAT 98; BMI 30.4
== END 2025-03-07 11:48 | disposition home or self-care (01) ==
LOC: HODSOBC 11:29
PROVIDERS: Supervising Provider Advanced Practice Midwife; Visit Provider Advanced Practice Midwife
DX: O09.893 Supervision of other high risk pregnancies, third trimester (principal); O23.593 Infection of other part of genital tract in pregnancy, third trimester; N76.0 Acute vaginitis; Z3A.30 30 weeks gestation of pregnancy
CPT/HCPCS: 99214; G0463

== ENCOUNTER 2025-03-25 13:02 | Outpatient (AMB) | payer MEDICAID, SELFPAY ==
[2025-03-25 13:11] VITALS: BP 107/69; PULSE 85; RESP 18; TEMP 36.2; O2SAT 98; BMI 30.4
--- NOTE | 2025-03-25 13:11 | AMB.OBPNC ---
Vital Signs 03/25/25 13:11 Height 1.52 m Height Method Stated Weight 70.42 kg Weight Measurement Method Standing Scale BMI 30.4 BP 107/69 Blood Pressure Source Automatic Cuff Blood Pressure Location Left Upper Arm Position Sitting Respiration 18 Pulse 85 Pulse Source Monitor Temp 97.2 F Temp Source Oral Pulse Oximetry (%) 98 Oxygen Delivery Method Room Air Allergies/Home Meds Allergies & Medications Allergies No Known Allergies Allergy (Unknown, Verified 03/25/25 13:12) Medication Reconciliation aspirin 81 mg tablet,delayed release (Adult Aspirin Regimen) 81 mg PO QDAY #30 tabs 09/24/24 [Rx Confirmed 03/25/25] doxylamine 10 mg-pyridoxine (vit B6) 10 mg tablet,delayed release (Diclegis) 1 tab PO BID 30 days #60 tabs 09/24/24 [Rx Confirmed 03/25/25] vitamin-ferrous fumarate 28 mg iron-folic acid 800 mcg tablet ( Vitamins with Minerals) 1 tab PO QDAY #60 tabs 11/07/24 [Rx Confirmed 03/25/25] clotrimazole 1 % vaginal cream (Gyne-Lotrimin 7) 1 appful vaginal QHS 7 days #45 grams 02/15/25 [Rx Confirmed 03/25/25] ferrous sulfate 325 mg (65 mg iron) tablet 325 mg PO BID #60 tabs 02/15/25 [Rx Confirmed 03/25/25] clotrimazole 2 % vaginal cream (Gyne-Lotrimin) 1 appful vaginal QHS 3 days #21 grams 03/07/25 [Rx Confirmed 03/25/25] Immunizations Immunizations Flu Vaccine in the Last 12 Months: No Flu Vaccine Exclusion Criteria: No Exclusion Criteria Care OB Visit Log OB Flowsheet Initial Weight: Not Recorded Date <del>?</del> EGA Weight BP Alb Glu CTX Pres Fundal ht FHR Mov Dilation Station Effacement Hx Notes Visit Note 09/24/24 <del>?</del> 7w 2d 73.992 kg 110/66 absent unknown 7 absent No bleeding, history of spotting x 4 week. ER visit x2, subchorionic bleed, sono 09/10: IUP 5w2. increasing HCG. C/o, Nausea. diclegesis bid, comfort measure for nausea, OB panel today. start low dose ASA. sab precaution, schedule NT referral and NIPT NV diclegesis bid, comfort measure for nausea, OB panel today. start low dose ASA. sab precaution, schedule NT referral and NIPT ,carrier screen and TSH nv 10/30/24 <del>?</del> 12w 3d 70.42 kg 110/71 absent unknown 12 145 absent no OB complaints. denies bleeding or leaking NIPT/carrier screen. MFM 11/01. discuss sab precaution. continue PNV. increase fluid 11/27/24 <del>?</del> 16w 3d 70.364 kg 106/67 absent unknown 16 145 active No OB complaints. Follow-up to ER visit. Patient had had's some cramping and burning so she was seen in the ER. Treated for UTI with Macrobid and is finishing up her antibiotics. Nitrites negative. Leukocyte +1. And there is trace protein. Denies leaking fluid. Denies bleeding. Maternal- medicine ultrasound was done. Patient has a follow-up in 6 to 8 weeks Follow-up MFM in 4 to 8 weeks. aFP today. Discussed SAB precautions. Increase fluids. Return in 4 weeks OB check 12/26/24 <del>?</del> 20w 4d 69.456 kg 104/60 absent unknown 20 145 active No OB complaints. Reports movement. Denies leaking, bleeding, contractions. Pap 6 weeks . Due TSH with third trimester labs at 24 weeks. Reviewed labs with patient patient has a follow-up ultrasound this week. Discussed labor precautions 01/23/25 <del>?</del> 24w 4d 69.57 kg 107/67 absent unknown 24 145 active Fetus active. No OB complaints. Patient has a echo scheduled. Previous history of a child with a heart murmur. Denies labor complaints denies contractions. Denies bleeding. Denies leaking 1 hour GTT. Reviewed ultrasound with patient. Discussed labor precautions. Continue prenatals. Return in 4 weeks OB check 02/15/25 <del>?</del> 27w 6d 69.853 kg 104/64 absent unknown 27 145 active Patient is here for increased complaints of vaginal itching and a greenish discharge. Reports good movement. Denies leaking or bleeding. Denies contractions. Did a spec exam perineum was clean no lesions. Vagina red. Did not have curdy greenish-white discharge positive whiff NuSwab today. I discussed elevated 1 hour GTT and ordered 3-hour. Comfort measures for vaginitis. 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 Flagyl 500 p.o. twice daily x 7. Discussed labor precautions. And return in 3 weeks for OB check. Iron twice a day ordered 03/07/25 <del>?</del> 30w 5d 70.307 kg 105/69 absent unknown 29 145 active Still complains of itching. NuSwab was positive for yeast. Reports movement. Denies leaking, bleeding or contractions. 3-hour GTT was normal Continue GDM diet as discussed and walk 40 minutes a day. Discussed labor precautions. Schedule ultrasound for growth. And I refilled the RELIEF PHARMACIST Lotrimin 2% x 3 days. Return in 2 weeks for recheck 03/25/25 <del>?</del> 33w 2d 70.42 kg 107/69 absent cephalic 32 146 active Still complains of vaginal itch. NuSwab was positive for yeast. Discussed labor precautions. Kick count twice a day. We reviewed sono Tdap today. Kick count twice a day. Discussed diet and weight gain. Increase fluids and return in 2 weeks OB check MARTY Calculator Estimated Delivery Date Method Current WG Current Estimate 05/11/25 LMP (Certain) 33w 2d Other Estimates 05/11/25 Ultrasound #1 33w 2d 05/12/25 Ultrasound #2 33w 1d 05/11/25 Manual 33w 2d final marty: 05/11/25 Notes Visit Date: 03/25/25 Last Updated by: Claudia Stahl CNM 03/20/25: 34 week: edc 05/01/25, 40.1% Visit Date: 03/07/25 Last Updated by: Claudia Stahl CNM 3 hr gtt wnl. Nuswab yeast+ Visit Date: 02/15/25 Last Updated by: Claudia Stahl CNM 01/25/25: 33/10,A1: 4.7, RPR::NR, 1 hr: 161 Visit Date: 12/26/24 Last Updated by: Claudia Stahl CNM previous cone BX/high grade. AFP-. OB panel: O+,abs-, rpr;;nbr, rub imm, hbsag-,hiv-, HC-, GC/CT-, UA-NIPT/carrier- 34 yo . LMP: 08/04/24. EDC: 05/11/25. 1st sono: 11/01/24: [id number]. EDC: 05/12/25. repap 6 week pp Visit Date: 11/27/24 Last Updated by: Claudia Stahl CNM 11/27: NIPT/carrier screen-. 11/01 MFM sono: IUP 12w4/normal anatomy Visit Date: 10/30/24 Last Updated by: Claudia Stahl CNM 10/30/24 OB labs: O+,abs-, rpr;;nr, rub imm, hbsag-,hiv-, GC/CT-, UA- Visit Date: 09/24/24 Last Updated by: Claudia Stahl CNM 34 yo . LMP 08/03/24. EDC 05/12/25. history of abnormal Pap Office Procedures OBC Clinic LOC & Office Proc's Nursing/Assessment Patient Status: Established Patient OB Clinic Nursing Assessment: Medication Reconciliation, Update PMH in EMR and Vital Signs OB Clinic Coordination of Care: Consent,records obtained, informed consent, Education Simp Pt/Fam, Lab and Imaging orders, Results/Orders obtained and Staff clarify orders Special Needs: Heart tones Established Patient Charge Established Patient Point Assignment: 110 Established Patient Point Charge: EP Level 3 (80-115) Immunizations diphth,pertus(acell),tetanus 2.5 Lf unit-8 mcg-5 Lf/0.5mL IM syringe Performing Provider: Claudia Stahl CNM Performing Location: [facility] Administered by: Alessandra Kenee MA on 03/25/25 15:11 Dose Route Admin Location Dispensed Lot Number Expiration Date Package NDC NDC Route Returner 0.5 mL IM Left Deltoid 0.5 mL [id number] 07/20/27 11088-680-21 [id number] [employer] VIS Given Date VIS Provided VIS Publication Date 03/25/25 Single Vaccine 24 Eligibility Eligibility Date Funding Source [facility] Assessment & Plan Diagnosis / Problem List (1) Encounter for supervision of high risk in third trimester, antepartum: Status: Acute Plan Tdap today. Discussed labor precautions. Kick count twice a day. Comfort measures for vaginitis. Reviewed ultrasound. Return in 2 weeks OB to Additional Plan Follow Up: 2 Weeks (obc)
== END 2025-03-25 13:33 | disposition home or self-care (01) ==
LOC: HODSOBC 13:02
PROVIDERS: Supervising Provider Advanced Practice Midwife; Visit Provider Advanced Practice Midwife
DX: O09.893 Supervision of other high risk pregnancies, third trimester (principal); O98.813 Other maternal infectious and parasitic diseases complicating pregnancy, third trimester; B37.49 Other urogenital candidiasis; Z3A.33 33 weeks gestation of pregnancy; Z23 Encounter for immunization
CPT/HCPCS: 90471; 90715; 99213; G0463

== ENCOUNTER 2025-04-09 12:57 | Outpatient (AMB) | payer MEDICAID, SELFPAY ==
[2025-04-09 13:04] VITALS: BP 110/67; PULSE 80; RESP 18; TEMP 36.7; O2SAT 98; BMI 30.9
--- NOTE | 2025-04-09 13:04 | OBCLNT_ITS ---
Vital Signs 04/09/25 13:04 Height 1.52 m Height Method Stated Weight 71.327 kg Weight Measurement Method Standing Scale BMI 30.9 BP 110/67 Blood Pressure Source Automatic Cuff Blood Pressure Location Right Upper Arm Position Sitting Respiration 18 Pulse 80 Pulse Source Monitor Temp 98.0 F Temp Source Temporal Artery Scan Pulse Oximetry (%) 98 Oxygen Delivery Method Room Air Allergies/Home Meds Allergies & Medications Allergies No Known Allergies Allergy (Unknown, Verified 04/09/25 13:05) Medication Reconciliation aspirin 81 mg tablet,delayed release (Adult Aspirin Regimen) 81 mg PO QDAY #30 tabs 09/24/24 [Rx Confirmed 04/09/25] doxylamine 10 mg-pyridoxine (vit B6) 10 mg tablet,delayed release (Diclegis) 1 tab PO BID 30 days #60 tabs 09/24/24 [Rx Confirmed 04/09/25] vitamin-ferrous fumarate 28 mg iron-folic acid 800 mcg tablet ( Vitamins with Minerals) 1 tab PO QDAY #60 tabs 11/07/24 [Rx Confirmed 04/09/25] clotrimazole 1 % vaginal cream (Gyne-Lotrimin 7) 1 appful vaginal QHS 7 days #45 grams 02/15/25 [Rx Confirmed 04/09/25] ferrous sulfate 325 mg (65 mg iron) tablet 325 mg PO BID #60 tabs 02/15/25 [Rx Confirmed 04/09/25] clotrimazole 2 % vaginal cream (Gyne-Lotrimin) 1 appful vaginal QHS 3 days #21 grams 03/07/25 [Rx Confirmed 04/09/25] Immunizations Immunizations Flu Vaccine in the Last 12 Months: No Flu Vaccine Exclusion Criteria: Refused by Patient Care OB Visit Log OB Flowsheet Initial Weight: Not Recorded Date -?-?-?-?-?-?-?-?-?-?-?-?- EGA Weight BP Alb Glu CTX Pres Fundal ht FHR Mov Dilation Station Effacement Hx Notes Visit Note 09/24/24 -?-?-?-?-?-?-?-?-?-?-?-?- 7w 2d 73.992 kg 110/66 absent unknown 7 ab sent No bleeding, history of spotting x 4 week. ER visit x2, subchorionic bleed, sono 09/10: IUP 5w2. increasing HCG. C/o, Nausea. dic legesis bid, comfort measure for nausea, OB panel today. start low dose ASA. sab precaution, schedule NT referral and NIPT NV diclegesis bid, comfort bry ure for nausea, OB panel today. start low dose ASA. sab precaution, schedule NT referral and NIPT ,carrier screen and TSH nv 10/30/24 -?-?-?-?-?-?-?-?-?-?-?-?- 12w 3d 70.42 kg 110/71 absent unknown 12 145 absent no OB complaints. denies bleeding or leaking NIPT/ carrier screen. MFM 11/01. discuss sab precaution. continue PNV. increase fluid 11/27/24 -?-?-?-?-?-?-?-?-?-?-?-?- 16w 3d 70.364 kg 106/67 absent unknown 16 145 active No OB complaints. Follow-up to ER visit. Patient had had's some cramping and burning so she was seen in the ER. Treated for UTI with Macrobid and is finishing up her antibiot ics. Nitrites negative. Leukocyte +1. And there is trace protein. Denies leaking fluid. Denies bleeding. Maternal- medicine ultrasound was done. Patient has a follow-up in 6 to 8 weeks Follow-up MFM in 4 to 8 weeks. aFP today. Discussed SAB precautions. Increase fluids. Return in 4 weeks OB check 12/26/24 -?-?-?-?-?-?-?-?-?-?-?-?- 20w 4d 69.456 kg 104/60 absent unknown 20 145 active No OB complaints. Reports movement. Denies leaking, bleeding, contractions. Pap 6 weeks . Due TSH with third trimester labs at 24 weeks. Reviewed labs with patient patient has a follow-up ultrasound this week. Discussed labor precautions 01/23/25 -?-?-?-?-?-?-?-?-?-?-?-?- 24w 4d 69.57 kg 107/67 absent unknown 24 145 active Fetus active. No OB complaints. Patient has a echo scheduled. Previous history of a child with a heart murmur. Denies labor complaints denies contractions. Denies bleeding. Denies leaking 1 hour GTT. Reviewed ultrasound with patient. Discussed labor precautions. Continue prenatals. Return in 4 weeks OB check 02/15/25 -?-?-?-?-?-?-?-?-?-?-?-?- 27w 6d 69.853 kg 104/64 absent unknown 27 145 active Patient is here for increased complaints of vaginal itching and a greenish discharge. Reports good movement. Denies leaking or bleeding. Denies contractions. Did a spec exam perineum was clean no lesions. Vagina red. Did not have curdy greenish- white discharge positive whiff N uSwab today. I discussed elevated 1 hour GTT and ordered 3-hour. Comfort measures for vaginitis. MECHANIC SENIOR Lotrimin x 7 I gave her a refill. Flagyl 500 p.o. twice daily x 7. Discussed labor precautions. And return in 3 weeks for OB check. Iron twice a day ordered 03/07/25 -?-?-?-?-?-?-?-?-?-?-?-?- 30w 5d 70.307 kg 105/69 absent unknown 29 145 active Still complains of itching. NuSwab was positive for yeast. Reports movement. Denies leaking, bleeding or contractions. 3-hour GTT was normal Continue GDM diet as discussed and walk 40 minutes a day. Discussed labor precautions. Schedule ultrasound for growth. And I refilled the MECHANIC SENIOR Lotrimin 2% x 3 days. Return in 2 weeks for recheck 03/25/25 -?-?-?-?-?-?-?-?-?-?-?-?- 33w 2d 70.42 kg 107/69 absent cephalic 32 146 active Still complains of vaginal itch. NuSwab was positive for yeast. Discussed labor precautions. Kick count twice a day. We reviewed sono Tdap today. Kick count twice a day. Discussed diet and weight gain. Increase fluids and return in 2 weeks OB check 04/09/25 -?-?-?-?-?-?-?-?-?-?-?-?- 35w 3d 71.327 kg 110/67 absent cephalic 35 146 active Denies any itching or OB complaints today. Reports good movement. Denies leaking, bleeding, contractions. Palpable movement GBS today. Discussed labor precautions. Kick count twice a day. Discussed ER precautions for return week OB check MARTY Calculator Estimated Delivery Date Method Current WG Current Estimate 05/11/25 LMP (Certain) 35w 3d Other Estimates 05/11/25 Ultrasound #1 35w 3d 05/12/25 Ultrasound #2 35w 2d 05/11/25 Manual 35w 3d final marty: 05/11 Notes Visit Date: 03/25/25 Last Updated by: Claudia Stahl CNM 03/20/25: 34 week: edc 05/01/25, 40.1% Visit Date: 03/07/25 Last Updated by: Claudia Stahl CNM 3 hr gtt wnl. Nuswab yeast+ Visit Date: 02/15/25 Last Updated by: Claudia Stahl CNM 01/25/25: 33/10,A1: 4.7, RPR::NR, 1 hr: 161 Visit Date: 12/26/24 Last Updated by: Claudia Stahl CNM previous cone BX/high grade. AFP-. OB panel: O+,abs-, rpr;;nbr, rub imm, hbsag-,hiv-, HC-, GC/CT-, UA-NIPT/carrier- 34 yo . LMP: 08/04/24. EDC: 05/11/25. 1st sono: 11/01/24: [id number]. EDC: 05/12/25. repap 6 week pp Visit Date: 11/27/24 Last Updated by: Claudia Stahl CNM 11/27: NIPT/carrier screen-. 11/01 [facility] sono: IUP 12w4/normal anatomy Visit Date: 10/30/24 Last Updated by: Claudia Stahl CNM 10/30/24 OB labs: O+,abs-, rpr;;nr, rub imm, hbsag-,hiv-, GC/CT-, UA- Visit Date: 09/24/24 Last Updated by: Claudia Stahl CNM 34 yo . LMP 08/03/24. EDC 05/12/25. history of abnormal Pap Office Procedures OB Clinic LOC & Office Proc's Nursing/Assessment Patient Status: Established Patient OB Clinic Nursing Assessment: Medication Reconciliation, Update PMH in EMR and Vital Signs OB Clinic Coordination of Care: Complex Care and Chronic Disease 1-5, Education Complex Pt/Fam, Consent,records obtained, informed consent, Lab and Imaging orders, Results/Orders obtained and Staff clarify orders Special Needs: Heart tones Miscellaneous Interventions: Culture Specimen Collection Established Patient Charge Established Patient Point Assignment: 155 Established Patient Point Charge: EP Level 4 (120-155) Assessment & Plan Diagnosis / Problem List (1) Encounter for supervision of high risk in third trimester, antepartum: Status: Acute Plan GBS today. Discussed labor precautions. Kick count twice a day. Discussed ER precautions and danger signs symptoms return a week OB check Additional Plan Follow Up: 1 Week (obc)
== END 2025-04-09 13:22 | disposition home or self-care (01) ==
LOC: HODSOBC 12:57
PROVIDERS: Supervising Provider Advanced Practice Midwife; Visit Provider Advanced Practice Midwife
DX: O09.93 Supervision of high risk pregnancy, unspecified, third trimester (principal); Z3A.35 35 weeks gestation of pregnancy; Z36.85 Encounter for antenatal screening for Streptococcus B; Z28.21 Immunization not carried out because of patient refusal
CPT/HCPCS: 99214; G0463

== ENCOUNTER 2025-04-23 10:32 | Outpatient (AMB) | payer MEDICAID, SELFPAY ==
[2025-04-23 10:50] VITALS: BP 104/62; PULSE 102; RESP 18; TEMP 36.2; O2SAT 98; BMI 30.9
--- NOTE | 2025-04-23 10:50 | OBCLNT_ITS ---
Vital Signs 04/23/25 10:50 Height 1.52 m Height Method Stated Weight 71.441 kg Weight Measurement Method Standing Scale BMI 30.9 BP 104/62 Blood Pressure Source Automatic Cuff Blood Pressure Location Left Upper Arm Position Sitting Respiration 18 Pulse 102 H Pulse Source Monitor Temp 97.2 F Temp Source Oral Pulse Oximetry (%) 98 Oxygen Delivery Method Room Air Allergies/Home Meds Allergies & Medications Allergies No Known Allergies Allergy (Unknown, Verified 04/23/25 10:52) Medication Reconciliation aspirin 81 mg tablet,delayed release (Adult Aspirin Regimen) 81 mg PO QDAY #30 tabs 09/24/24 [Rx Confirmed 04/23/25] doxylamine 10 mg-pyridoxine (vit B6) 10 mg tablet,delayed release (Diclegis) 1 tab PO BID 30 days #60 tabs 09/24/24 [Rx Confirmed 04/23/25] vitamin-ferrous fumarate 28 mg iron-folic acid 800 mcg tablet ( Vitamins with Minerals) 1 tab PO QDAY #60 tabs 11/07/24 [Rx Confirmed 04/23/25] clotrimazole 1 % vaginal cream (Gyne-Lotrimin 7) 1 appful vaginal QHS 7 days #45 grams 02/15/25 [Rx Confirmed 04/23/25] ferrous sulfate 325 mg (65 mg iron) tablet 325 mg PO BID #60 tabs 02/15/25 [Rx Confirmed 04/23/25] clotrimazole 2 % vaginal cream (Gyne-Lotrimin) 1 appful vaginal QHS 3 days #21 grams 03/07/25 [Rx Confirmed 04/23/25] Immunizations Immunizations Flu Vaccine in the Last 12 Months: No Flu Vaccine Exclusion Criteria: Refused by Patient Care OB Visit Log OB Flowsheet Initial Weight: Not Recorded Date -?-?-?-?-?-?-?-?-?-?-?-?- EGA Weight BP Alb Glu CTX Pres Fundal ht FHR Mov Dilation Station Effacement Hx Notes Visit Note 09/24/24 -?-?-?-?-?-?-?-?-?-?-?-?- 7w 2d 73.992 kg 110/66 absent unknown 7 ab sent No bleeding, history of sp otting x 4 week. ER visit x2, subchorionic bleed, sono 09/10: IUP 5w2. increasing HCG. C/o, Nausea. diclegesis bid , comfort measure for nausea, OB panel today. start low dose ASA. sab precaution, schedule NT referral and NIPT NV diclegesis bid, comfort bry ure for nausea, OB panel today. start low dose ASA. sab precaution, schedule NT referral and NIPT ,carrier screen and TSH nv 10/30/24 -?-?-?-?-?-?-?-?-?-?-?-?- 12w 3d 70.42 kg 110/71 absent unknown 12 145 absent no OB complaints. denies bleeding or leaking NIPT/ carrier screen. MFM 11/01. discuss sab precaution. continue PNV. increase fluid 11/27/24 -?-?-?-?-?-?-?-?-?-?-?-?- 16w 3d 70.364 kg 106/67 absent unknown 16 145 active No OB complaints. Follow-up to ER visit. Patient had had's some cramping and burning so she was seen in the ER. Treated for UTI with Macrobid and is finishing up her antibiotics. Nitrites negative. Leukocyte +1. And there is trace protein. Denies leaking fluid. Denies bleeding. Maternal- medicine ultrasound was done. Patient has a follow-up in 6 to 8 weeks Follow-up MFM in 4 to 8 weeks. aFP today. Discussed SAB precautions. Increase fluids. Return in 4 weeks OB check 12/26/24 -?-?-?-?-?-?-?-?-?-?-?-?- 20w 4d 69.456 kg 104/60 absent unknown 20 145 active No OB complaints. Reports movement. Denies leaking, bleeding, contractions. Pap 6 weeks . Due TSH with third trimester labs at 24 weeks. Reviewed labs with patient patient has a follow-up ultrasound this week. Discussed labor precautions 01/23/25 -?-?-?-?-?-?-?-?-?-?-?-?- 24w 4d 69.57 kg 107/67 absent unknown 24 145 active Fetus active. No OB complaints. Patient has a echo scheduled. Previous history of a child with a heart murmur. Denies labor complaints denies contractions. Denies bleeding. Denies leaking 1 hour GTT. Reviewed ultrasound with patient. Discussed labor precautions. Continue prenatals. Return in 4 weeks OB check 02/15/25 -?-?-?-?-?-?-?-?-?-?-?-?- 27w 6d 69.853 kg 104/64 absent unknown 27 145 active Patient is here for increased complaints of vaginal itching and a greenish discharge. Reports good movement. Denies leaking or bleeding. Denies contractions. Did a spec exam perineum was clean no lesions. Vagina red. Did not have curdy greenish- white discharge positive whiff N uSwab today. I discussed elevated 1 hour GTT and ordered 3-hour. Comfort measures for vaginitis. CHILD MONITOR Lotrimin x 7 I gave her a refill. Flagyl 500 p.o. twice daily x 7. Discussed labor precautions. And return in 3 weeks for OB check. Iron twice a day ordered 03/07/25 -?-?-?-?-?-?-?-?-?-?-?-?- 30w 5d 70.307 kg 105/69 absent unknown 29 145 active Still complains of itching. NuSwab was positive for yeast. Reports movement. Denies leaking, bleeding or contractions. 3-hour GTT was normal Continue GDM diet as discussed and walk 40 minutes a day. Discussed labor precautions. Schedule ultrasound for growth. And I refilled the CHILD MONITOR Lotrimin 2% x 3 days. Return in 2 weeks for recheck 03/25/25 -?-?-?-?-?-?-?-?-?-?-?-?- 33w 2d 70.42 kg 107/69 absent cephalic 32 146 active Still complains of vaginal itch. NuSwab was positive for yeast. Discussed labor precautions. Kick count twice a day. We reviewed sono Tdap today. Kick count twice a day. Discussed diet and weight gain. Increase fluids and return in 2 weeks OB check 04/09/25 -?-?-?-?-?-?-?-?-?-?-?-?- 35w 3d 71.327 kg 110/67 absent cephalic 35 146 active Denies any itching or OB complaints today. Reports good movement. Denies leaking, bleeding, contractions. Palpable movement GBS today. Discussed labor precautions. Kick count twice a day. Discussed ER precautions for return week OB check 04/23/25 -?-?-?-?-?-?-?-?-?-?-?-?- 37w 3d 71.441 kg 104/62 absent cephalic 37 147 active Increased pressure. Reports good movement. Denies leaking, bleeding. Discussed labor precautions. Kick count twice a day. Comfort measures for third trimester discomforts. Discussed danger signs symptoms and ER precautions return in a week OB check MARTY Calculator Estimated Delivery Date Method Current WG Current Estimate 05/11/25 LMP (Certain) 37w 3d Other Estimates 05/11/25 Ultrasound #1 37w 3d 05/12/25 Ultrasound #2 37w 2d 05/11/25 Manual 37w 3d final marty: 05/11 Notes Visit Date: 04/23/25 Last Updated by: Claudia Stahl CNM GBS- Visit Date: 03/25/25 Last Updated by: Claudia Stahl CNM 03/20/25: 34 week: edc 05/01/25, 40.1% Visit Date: 03/07/25 Last Updated by: Claudia Stahl CNM 3 hr gtt wnl. Nuswab yeast+ Visit Date: 02/15/25 Last Updated by: Claudia Stahl CNM 01/25/25: 33/10,A1: 4.7, RPR::NR, 1 hr: 161 Visit Date: 12/26/24 Last Updated by: Claudia Stahl CNM previous cone BX/high grade. AFP-. OB panel: O+,abs-, rpr;;nbr, rub imm, hbsag-,hiv-, HC-, GC/CT-, UA-NIPT/carrier- 34 yo . LMP: 08/04/24. EDC: 05/11/25. 1st sono: 11/01/24: [id number]. EDC: 05/12/25. repap 6 week pp Visit Date: 11/27/24 Last Updated by: Claudia Stahl CNM 8/5: NIPT/carrier screen-. 11/01 [facility] sono: IUP 12w4/normal anatomy Visit Date: 10/30/24 Last Updated by: Claudia Stahl CNM 10/30/24 OB labs: O+,abs-, rpr;;nr, rub imm, hbsag-,hiv-, GC/CT-, UA- Visit Date: 09/24/24 Last Updated by: Claudia Stahl CNM 34 yo . LMP 08/03/24. EDC 05/12/25. history of abnormal Pap Office Procedures OBC Clinic LOC & Office Proc's Nursing/Assessment Patient Status: Established Patient OB Clinic Nursing Assessment: Medication Reconciliation, Update PMH in EMR and Vital Signs OB Clinic Coordination of Care: Complex Care and Chronic Disease 1-5, Consent ,records obtained, informed consent, Education Simp Pt/Fam, Lab and Imaging orders, Results/Orders obtained and Staff clarify orders Special Needs: Heart tones Established Patient Charge Established Patient Point Assignment: 135 Established Patient Point Charge: EP Level 4 (120-155) Assessment & Plan Diagnosis / Problem List (1) Encounter for supervision of high risk in third trimester, antepartum: Status: Acute Plan Discussed kick count twice a day. Labor precautions reviewed with patient. Discussed danger signs symptoms. Discussed comfort measures for third trimester discomforts and return week OB check Additional Plan Follow Up: 1 Week (obc)
== END 2025-04-23 11:24 | disposition home or self-care (01) ==
LOC: HODSOBC 10:32
PROVIDERS: Supervising Provider Advanced Practice Midwife; Visit Provider Advanced Practice Midwife
DX: O09.93 Supervision of high risk pregnancy, unspecified, third trimester (principal); Z3A.37 37 weeks gestation of pregnancy; Z28.21 Immunization not carried out because of patient refusal
CPT/HCPCS: 99214; G0463